=== PATIENT | male | born 1965 | race Caucasian/White ===

== ENCOUNTER → 2016-12-25 | Outpatient (CLI) | payer OTHER ==
[~2016-12-25] MED LIST: ASPEC81 PO; ATV5 PO; BYTI10 SQ; CARI350T28 PO; FLUO40CA8 PO; GABA800T PO; GLC500 PO; HMLI SC; LISI1TAB3 PO; NIAC500T11 PO; OXYC7.5T37 PO; RANI300T2 PO; SYN50 PO
[2016-12-25 17:55] LABS: ALT/SGPT 24 U/L (12-78); BLOOD UREA NITROGEN 17 mg/dl (7-18); BUN/CREATININE RATIO 15.4 (10-20); CALCIUM 9.1 mg/dl (8.5-10.1); CARBON DIOXIDE 26 mmol/L (21-32); CHLORIDE 101 mmol/L (98-107); GLUCOSE 204 mg/dl (70-99); POTASSIUM 3.9 mmol/L (3.5-5.1); SODIUM 138 mmol/L (136-145)
[2016-12-26 06:24] LABS: ESTIMATED AVERAGE GLUCOSE 269 mg/dl; HA1C FLAG Normal (Normal)
== END | disposition home or self-care (01) ==
LOC: C.LABMFLN 11:07
PROVIDERS: ATTEND Family Medicine
DX: N52.9 Male erectile dysfunction, unspecified (principal); N64.4 Mastodynia; I10 Essential (primary) hypertension; E78.00 Pure hypercholesterolemia, unspecified; E11.65 Type 2 diabetes mellitus with hyperglycemia; E03.9 Hypothyroidism, unspecified; Z12.5 Encounter for screening for malignant neoplasm of prostate

== ENCOUNTER → 2017-05-15 | Outpatient (CLI) | payer OTHER ==
[2017-05-15 14:33] LABS: RATIO 23.3 mcg/mg (0-30.0)
[2017-05-15 14:36] LABS: ESTIMATED AVERAGE GLUCOSE 260 mg/dl; HA1C FLAG Normal (Normal)
[2017-05-15 14:43] LABS: ALT/SGPT 36 U/L (12-78); BLOOD UREA NITROGEN 12 mg/dl (7-18); BUN/CREATININE RATIO 14.1 (10-20); CALCIUM 9.4 mg/dl (8.5-10.1); CARBON DIOXIDE 26 mmol/L (21-32); CHLORIDE 107 mmol/L (98-107); CHOLESTEROL 171 mg/dl (0-200); CREATININE 0.85 mg/dl (0.60-1.40); GLUCOSE 81 mg/dl (70-99); POTASSIUM 3.9 mmol/L (3.5-5.1); SODIUM 140 mmol/L (136-145); TRIGLYCERIDES 271 mg/dl (0-150); VERY LOW DENSITY LIPOPROT CALC 54 mg/dl
[2017-05-15 14:53] LABS: CHOLESTEROL/HDL RATIO 4.9; HDL CHOLESTEROL 35 mg/dl; LDL CHOLESTEROL CALCULATED 82 mg/dl
== END | disposition home or self-care (01) ==
LOC: C.LABMFLN 11:11
PROVIDERS: ATTEND Family Medicine
DX: E03.9 Hypothyroidism, unspecified (principal); E11.65 Type 2 diabetes mellitus with hyperglycemia; I10 Essential (primary) hypertension; E29.1 Testicular hypofunction

== ENCOUNTER → 2017-06-03 | Outpatient (CLI) | payer OTHER ==
[2017-06-03 13:18] LABS: URINE APPEARANCE CLEAR (CLEAR); URINE BILIRUBIN NEG (NEG); URINE COLOR DK YELLOW; URINE NITRITE NEG (NEG); URINE PH 6.5 (4.5-7.5); URINE SPECIFIC GRAVITY 1.028 (1.000-1.030); UROBILINOGEN NEG (NEG)
[2017-06-03 13:33] LABS: MANUAL MICROSCOPIC REQUIRED? NO; REVIEW REQ? NO
== END | disposition home or self-care (01) ==
LOC: C.LABMFLN 10:35
PROVIDERS: ATTEND Family Medicine
DX: M25.551 Pain in right hip (principal)

== ENCOUNTER → 2017-06-22 | Outpatient (CLI) | payer OTHER ==
[2017-06-22 13:31] LABS: ESTIMATED AVERAGE GLUCOSE 260 mg/dl; HA1C FLAG Normal (Normal)
[2017-06-22 13:33] LABS: BLOOD UREA NITROGEN 22 mg/dl (7-18); BUN/CREATININE RATIO 19.9 (10-20); CALCIUM 10.3 mg/dl (8.5-10.1); CARBON DIOXIDE 30 mmol/L (21-32); CHLORIDE 99 mmol/L (98-107); GLUCOSE 65 mg/dl (70-99); POTASSIUM 3.5 mmol/L (3.5-5.1); SODIUM 136 mmol/L (136-145)
== END | disposition home or self-care (01) ==
LOC: C.LABMFLN 09:47
PROVIDERS: ATTEND Family Medicine
DX: E03.9 Hypothyroidism, unspecified (principal); E11.65 Type 2 diabetes mellitus with hyperglycemia; R61 Generalized hyperhidrosis

== ENCOUNTER → 2017-10-02 | Outpatient (CLI) | payer OTHER ==
[2017-10-02 13:11] LABS: HEMATOCRIT 45.1 % (42-52); MEAN CELL VOLUME 88.3 fL (80-100); MEAN CORPUSCULAR HGB CONC 32.8 g/dl (32-36); MEAN PLATELET VOLUME 9.9 fL (7.4-10.4); PLATELET COUNT 322 K/uL (130-400); RED BLOOD COUNT 5.11 M/uL (4.7-6.1); WHITE BLOOD COUNT 9.86 K/uL (4.8-10.8)
== END | disposition home or self-care (01) ==
LOC: C.LABMFLN 08:58
PROVIDERS: ATTEND Family Medicine
DX: R07.2 Precordial pain (principal); R06.09 Other forms of dyspnea

== ENCOUNTER → 2017-10-06 | Outpatient (CLI) | payer OTHER ==
--- NOTE | 2017-10-06 10:44 | Exercise Stress Test Report ---
Exercise Stress Test Report Exercise Stress Test Report Date of Service: October 06, 2017 Exercise Stress Test Report Procedure performed: Exercise stress testing Indication chest pain Procedure in detail: Patient exercised for a total of 4 minutes and 3 seconds using a standard Don protocol. He achieved 76% of the maximum predicted heart rate and 5.8 Mets of activity. There were no symptoms reported during the test Baseline blood pressure was 131/58 in route to 199/60 Baseline EKG was normal sinus rhythm There were no significant EKG changes during exercise or recovery The test was discontinued due to back pain Impression: Sub maximal exercise stress test without evidence of inducible ischemia Hypertensive response to exercise
== END | disposition home or self-care (01) ==
LOC: C.CPL 08:26
PROVIDERS: ATTEND Family Medicine
DX: R07.2 Precordial pain (principal)

== ENCOUNTER → 2017-11-18 | Outpatient (CLI) | payer OTHER ==
[~2017-11-18] MED LIST changes: +LISI-863 PO; -LISI1TAB3 PO
[2017-11-18 13:09] LABS: HEMATOCRIT 42.8 % (42-52); HEMOGLOBIN 14.8 g/dL (14.0-18.0)
== END | disposition home or self-care (01) ==
LOC: C.LABMFLN 10:01
PROVIDERS: ATTEND Family Medicine
DX: K27.9 Peptic ulcer, site unspecified, unspecified as acute or chronic, without hemorrhage or perforation (principal)

== ENCOUNTER → 2018-07-02 | Outpatient (CLI) | payer OTHER ==
[2018-07-02 13:18] LABS: HEMOGLOBIN A1C 13.4 % (4.5-5.6)
[2018-07-02 13:47] LABS: ALBUMIN 3.5 gm/dl (3.4-5.0); ALKALINE PHOSPHATASE 151 U/L (45-117); ALT/SGPT 29 U/L (12-78); AST/SGOT 11 U/L (15-37); BLOOD UREA NITROGEN 20 mg/dl (7-18); CALCIUM 8.7 mg/dl (8.5-10.1); CARBON DIOXIDE 25 mmol/L (21-32); CHOLESTEROL 179 mg/dl (0-200); CREATININE 0.97 mg/dl (0.60-1.40); GLUCOSE 197 mg/dl (70-99); POTASSIUM 4.1 mmol/L (3.5-5.1); SODIUM 133 mmol/L (136-145); TOTAL PROTEIN 7.4 gm/dl (6.4-8.2)
== END | disposition home or self-care (01) ==
LOC: C.LAB 10:24
PROVIDERS: ATTEND Family Medicine
DX: E03.9 Hypothyroidism, unspecified (principal); E11.9 Type 2 diabetes mellitus without complications

== ENCOUNTER 2019-12-02 08:55 | Inpatient (IN) ==
[2019-12-02] MEDS ORDERED: ONDANSETRON 4 MG OD TAB PO PRN (15:30)
[2019-12-02] MEDS ORDERED: METOCLOPRAMIDE HCL INJ 5 MG/ML 2 ML VIAL IV PRN (15:30)
[2019-12-02] MEDS ORDERED: LORazepam 1 MG/2 ML VIAL IV PRN (15:30)
[2019-12-02] MEDS ORDERED: HYDROmorphone INJ 0.5 MG/0.5 ML SYR IV PRN (15:30)
[2019-12-02] MEDS ORDERED: PROMETHAZINE HCL 12.5 MG in SODIUM CHLORIDE 0.9% 50 ML IV PRN (15:30)
[2019-12-02] MEDS ORDERED: ONDANSETRON INJ 2 MG/ML 2 ML VIAL IV PRN (15:30)
--- NOTE | 2019-12-02 15:30 | History & Physical Report ---
Date of Service December 02, 2019 Assessment & Plan (1) Myelopathy concurrent with and due to spinal stenosis of thoracic region: At this time I admitted the patient for pain control and medical evaluation. I would recommend that he undergo urgent thoracolumbar decompression extending from T11-L4. We would have to remove the hardware at L4-5 L5-S1 to [employer] to the new fusion. This is been outlined in detail the patient and his they understand agree with this plan. At this point we will control his pain have him undergo medical evaluation plan for surgery on an urgent basis hopefully as soon as Thursday if cleared. Present on Admission?: Yes History of Present Illness Chief Complaint: Patient has had a steady decline in ambulation over the past several weeks and now is unable to ambulate secondary to severe weakness to left lower extremity. He also notes pain radiating to the right lower extremity with weightbearing. He describes significant numbness involving the left lower extremity in combination with his weakness. Again the symptoms began a few weeks ago but have been markedly progressive in nature. He was seen in my office yesterday underwent review of his thoracic and lumbar imaging demonstrating severe multilevel spinal stenosis most impressive at T11-T12 with traumatic cord compression and displacement. The patient subsequently pr ogressed presents with myelo radicular pattern of weakness and inability to ambulate. Patient denies any loss of bowel bladder control or any perineal numbness. Primary Care Provider: Jade Tong DO Allergies Allergy/AdvReac Type Severity Reaction Status Date / Time codeine Allergy Intermediate CONFUSION Verified 12/28/09 04:16 empagliflozin Allergy Unknown Headache Verified 12/02/19 13:54 [From Jardiance] meperidine [From Demerol] AdvReac Intermediate Nausea Verified 06/24/19 13:21 Home Medications Home Medications Medication Instructions Recorded Confirmed Type hydrocodone 7.5 mg-acetaminophen 1 tab PO Q8H #90 tab 06/24/19 Rx 325 mg tablet B-complex with vitamin C 1 tab PO DAILY #90 tab 07/05/19 12/02/19 Rx bupropion HCl 150 mg 24 hr tablet, 150 mg PO QPM #90 tab 07/05/19 12/02/19 Rx extended release chlorthalidone 25 mg tablet 25 mg PO DAILY #90 tab 07/05/19 12/02/19 Rx fenofibrate micronized 134 mg 134 mg PO DAILY #90 cap 07/05/19 07/05/19 Rx capsule lactulose 10 gram/15 mL oral 60 ml PO BID #473 ml 07/05/19 07/05/19 Rx solution metformin 1,000 mg tablet See Rx Instructions PO DAILY #225 07/05/19 12/02/19 Rx tab naloxegol 25 mg tablet 25 mg PO QAM #90 tab 07/05/19 07/05/19 Rx omega-3 acid ethyl esters 1 gram 1 cap PO BID #180 cap 07/05/19 07/05/19 Rx capsule pantoprazole 40 mg tablet,delayed 40 mg PO DAILY #90 tab 07/05/19 12/02/19 Rx release sucralfate 100 mg/mL oral 10 ml PO BID #420 ml 07/05/19 07/05/19 Rx suspension cyclobenzaprine 10 mg tablet 10 mg PO BID PRN tab 07/09/19 07/09/19 History oxycodone 10 mg tablet 10 mg PO Q4H PRN #30 tab 07/09/19 07/09/19 History cyclobenzaprine 10 mg tablet See Rx Instructions .ROUTE 08/05/19 Rx .COMPLEX #60 tablet insulin aspart U-100 100 unit/mL See Rx Instructions .ROUTE 08/05/19 Rx (3 mL) subcutaneous pen .COMPLEX #30 milliliter aspirin 162 mg PO DAILY 12/02/19 12/02/19 History atorvastatin 40 mg PO DAILY 12/02/19 12/02/19 History baclofen 10 mg PO BID 12/02/19 12/02/19 History duloxetine 30 mg PO DAILY 12/02/19 12/02/19 History insulin degludec 80 units SUBCUT BID 12/02/19 12/02/19 History levothyroxine 137 mcg PO DAILY 12/02/19 12/02/19 History lisinopril 2.5 mg PO DAILY 12/02/19 12/02/19 History meloxicam 15 mg PO DAILY 12/02/19 12/02/19 History metoprolol succinate 100 mg PO DAILY 12/02/19 12/02/19 History Past Med/Surg History Medical History (Updated 12/02/19 @ 15:29 by Chris Silva DO) Adenomatous polyp of colon (Chronic) Benign essential hypertension (Chronic) Depression (Chronic) Diabetes mellitus type 2, uncontrolled (Chronic) Hypercholesterolemia (Chronic) Hypothyroidism (Chronic) Lumbosacral radiculopathy at L3 (Chronic) Morbid obesity (Chronic) Obstructive sleep apnea (Chronic) Opiate dependence (Chronic) Paroxysmal atrial fibrillation (Chronic) Social History Preferred Language: Beninese Communication Ability: Effective Financial Reporting Consultant Required: No Beliefs That Will Affect Care: None Current Living Situation: Spouse Other Information That Helps Us Care for You: No Feels Safe at Home: Yes Safety Concerns: Feels Safe At This Time Smoking Status: Current every day smoker Tobacco Type: cigarettes ; Cigarettes Per Day: 45 ; Do You Dip or Chew Tobacco: Yes (occasionally) ; Hx Alcohol Use: Yes Alcohol type: beer, wine and hard liquor Hx Substance Use: No Physical Exam Physical Exam: On exam he has marked deficits to left plantar flexion dorsiflexion extensor pollicis longus as well as quadriceps and hip flexors. On the right he is a 4+/5 plantar flexion dorsiflexion quadriceps. Sensory is markedly diminished in the left lower extremity compared to the right. He is unable to ambulate secondary to leg weakness. Results & Data Vital Signs (Past 12 Hours) Vital Signs Temp Pulse Resp BP Pulse Ox 12/02/19 15:04 37.3 C 67 16 144/85 H 97 12/02/19 13:14 36.9 C 67 16 154/85 H 98
--- NOTE | 2019-12-02 16:45 | Ultrasound Report ---
US venous doppler LE BI CLINICAL HISTORY: Leg weakness and pain COMPARISON STUDY: No previous studies for comparison. FINDINGS: Real-time and color flow Doppler imaging were performed. Flow was seen within the femoral, popliteal and calf veins with no intraluminal thrombus demonstrated. The saphenous vein is patent. IMPRESSION: No evidence of lower extremity DVT. ACT 112: Negative or not required by law. Electronically signed by: Hipolito Olivares M.D. 12/02/2019 4:43 PM
--- NOTE | 2019-12-02 16:48 | XRay Report ---
XR chest 2V PA/lateral CLINICAL HISTORY: Preoperative chest COMPARISON STUDY: No previous studies for comparison. FINDINGS: The heart is at the upper limits of normal in size. There is no failure. There is no focal pulmonary consolidation. There are no pleural effusions.[ IMPRESSION: No active disease in the chest. ACT 112: Negative or not required by law. Electronically signed by: Hipolito Olivares M.D. 12/02/2019 4:47 PM
[2019-12-02] MEDS: OXYCODONE HCL IR 5 MG TAB (IMMEDIATE RELEASE) PO PRN ×2 (16:52→21:16)
--- NOTE | 2019-12-02 16:53 | Consultation ---
Date of Consultation December 02, 2019 Assessment & Plan (1) Lumbar radiculopathy: Pt with h/o lumbar surgery in 2008. Reports for past 8 months with progressive back pain with worsening over the past month with weakness and numbness of right leg. Venous Doppler BLE: No evidence of lower extremity DVT. CXR:No active disease in the chest. H/H: 13.6/41.3 CMP pending -Ortho spine-Dr. Silva on board; plan for possible procedure on 12/05/19 -pain management per ortho -Obtain EKG in am to further evaluate for complete pre-op evaluation (2) Diabetes mellitus type 2, uncontrolled: A1c: 13.8 on 10/07/2019 Following with outpatient [facility]TM glycemic pharmacy and insulin adjustments, Ozempic has not been started yet. -Hold metformin, Ozempic -Hold home insulin -Basal bolus insulin -Monitor BSG's, diabetic diet -Obtain updated A1c (3) HTN (hypertension): -On chlorthalidone, lisinopril, metoprolol (4) Dyslipidemia: -Continue atorvastatin (5) Hypothyroidism: TSH: 4.3 on 10/07/2019 -Continue levothyroxine (6) Depression: -Continue bupropion, duloxetine (7) GERD (gastroesophageal reflux disease): -Continue PPI (8) Morbid obesity: BMI: 41.8 Lifestyle modifications recommended (9) Tobacco use: -Pt reports wishing to quit smoking -Pt denies nicotine patch at this time DVT Prophylaxis -SCDs Disposition per primary service Follows with Dr Tong for routine care Pt was seen and care coordinated with Dr Sarabia. See addendum Pt will be followed by Dr Box starting 12/03/18. Thank you for this consultation. We will follow the patient with you during their hospital stay. You can reach a member of the [facility] Hospitalist Team 15/06 via pager @ [phone]. Supervising Physician Co-Signing Physician Notes HISTORY: Record reviewed. Patient interviewed and examined. Care coordinated with Charisse Moffett PA-C. Please refer to her documentation for complete history. Briefly, 54 YO male with history of hypertension, DM, and other problems. Progressive low back pain with severe right sciatica and LLE weakness. MRI demonstrated multilevel disc disease / spinal stenosis. Admitted to Ortho Spine service EXAM: General- no distress Lungs- clear to auscultation; no respiratory distress Cardiovascular- RRR; no murmur; no gallop; no JVD; 1+ pretibial edema Abdomen- + bowel sounds, soft, nontender Extremities- no cyanosis; no calf tenderness Neuro- alert, oriented; weakness LLE Skin- warm & dry; healing superficial lesion left lateral foot without erythema or drainage DATA: Hgb 13.6, WBC 10,610, plts 274,000. Normal lytes, BUN 14, creatinine 0.93, random glucose 194. Other lab studies as noted. Chest x-ray negative. Venous duplex bilateral lower extremities negative for DVT. ASSESSMENT AND PLAN: Lumbar spinal stenosis with myelopathy. Management per Ortho Spine. Hypertension. Continue chlorthalidone, lisinopril, metoprolol. DM type II. Hold metformin during hospital stay. Check Hgb A1C. Lantus / NovoLog per protocol. Aspirin therapy. Apparently for prophylaxis. Hold. Please refer to CLAIRE Moffett's documentation for discussion of other issues. Thank you for this consultation. We will follow the patient with you during their hospital stay. My cell # is [phone]. You can reach a member of the [facility] Medicine Team 15/06 via pager @ [phone]. History of Present Illness Requesting Physician: Dr Silva Reason for Consultation: Pre-op evaluation Attending Physician: Chris Silva, History of Present Illness Pt is 54 y/o M with PMH HTN, dyslipidemia, DM II, hypothyroidism, depression, morbid obesity seen in medical consultation for pre- op evaluation. Pt with h/o lumbar surgery in 2008. Reports for past 8 months with progressive back pain with worsening over the past month with numbness of right leg. Also complains of left leg weakness. Denies loss of control of bowel or bladder. Reports numbness of bilateral feet. Patient denies any history of exertional shortness of breath, chest pain. Reported possible history of episode of a-fib in 11/2017 at [facility]. Subsequently followed with Dr. Herrera - Cardiology and had Zio patch 12/2017: No A. fib, 5 SVT runs longest 10.6 seconds. Patient denies any history of palpitations. Has history of congestive heart failure, TIA, stroke, CKD, CAD. History echo 11/01/2019: EF: 64%, normal diastolic function, trace mitral regurgitation. Pt recently started follow up with [facility] for uncontrolled DM II. Had adjustments with his insulin and was to start Ozempic, but has not started yet. Denies fever/chills, diaphoresis, N/V/D/C, ARREGUIN, dizziness, syncope, vision changes, neck pain, orthopnea, cough, sore throat, choking, otalgia, rhinorrhea, abdominal pain, extremity edema, rashes, urinary symptoms. 11/15/2019 MRI T-spine without contrast: Impression: Disc herniation is seen at T11-12 with marked displacement of the cord to the right. The large disc is occupying approximately 2/3 of the canal 10/31/2019 MRI L-spine without contrast Impression: 1. Multilevel, multifactorial degenerative changes of the lumbar spine with varying degrees of spinal canal and neural foraminal stenosis. 2. Severe spinal canal stenosis with mass-effect of the distal spinal cord at the level of T11-T12. 3. Postsurgical changes of posterior spinal fusion spanning L4-S1. 4. Incompletely characterized left adrenal nodule, similar in size to MRI abdomen dated 04/05/2019 Allergies Allergy/AdvReac Type Severity Reaction Status Date / Time codeine Allergy Intermediate CONFUSION Verified 12/28/09 04:16 empagliflozin Allergy Unknown Headache Verified 12/02/19 13:54 [From Jardiance] meperidine [From Demerol] AdvReac Intermediate Nausea Verified 06/24/19 13:21 Home Medications Home Medications Medication Instructions Recorded Confirmed Type B-complex with vitamin C 1 tab PO DAILY #90 tab 07/05/19 12/02/19 Rx bupropion HCl 150 mg 24 hr tablet, 150 mg PO QPM #90 tab 07/05/19 12/02/19 Rx extended release chlorthalidone 25 mg tablet 25 mg PO DAILY #90 tab 07/05/19 12/02/19 Rx metformin 1,000 mg tablet See Rx Instructions PO DAILY #225 07/05/19 12/02/19 Rx tab pantoprazole 40 mg tablet,delayed 40 mg PO DAILY #90 tab 07/05/19 12/02/19 Rx release aspirin 162 mg PO DAILY 12/02/19 12/02/19 History atorvastatin 40 mg PO HS 12/02/19 12/02/19 History baclofen 10 mg PO BID 12/02/19 12/02/19 History duloxetine 30 mg PO DAILY 12/02/19 12/02/19 History insulin aspart U-100 [Novolog 40 unit SUBCUT TIDM 12/02/19 12/02/19 History Flexpen U-100 Insulin] insulin degludec 80 units SUBCUT BID 12/02/19 12/02/19 History levothyroxine 137 mcg PO DAILY 12/02/19 12/02/19 History lisinopril 2.5 mg PO DAILY 12/02/19 12/02/19 History meloxicam 15 mg PO DAILY 12/02/19 12/02/19 History metoprolol tartrate 100 mg PO BID 12/02/19 12/02/19 History semaglutide [Ozempic] 0.25 mg SUBCUT WK 12/02/19 12/02/19 History Patient History Medical History Adenomatous polyp of colon (Chronic) Benign essential hypertension (Chronic) Depression (Chronic) Diabetes mellitus type 2, uncontrolled (Chronic) Dyslipidemia GERD (gastroesophageal reflux disease) HTN (hypertension) Hypercholesterolemia (Chronic) Hypothyroidism (Chronic) Lumbosacral radiculopathy at L3 (Chronic) Morbid obesity (Chronic) Obstructive sleep apnea (Chronic) Opiate dependence (Chronic) Paroxysmal atrial fibrillation (Chronic) Tobacco use Surgical History (Updated 12/02/19 @ 16:24 by Cahrisse Moffett PA-C) History of colonoscopy 03/2018 - Dr Villela. 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 Beliefs That Will Affect Care: None Current Living Situation: Spouse Other Information That Helps Us Care for You: No Feels Safe at Home: Yes Safety Concerns: Feels Safe At This Time Smoking Status: Current every day smoker Tobacco Type: cigarettes ; Cigarettes Per Day: 1.5ppd ; Do You Dip or Chew Tobacco: Yes (occasionally) ; Hx Alcohol Use: Yes Alcohol type: beer, wine and hard liquor Alcohol Intake Frequency: Holidays/Special Occasions Hx Substance Use: No Review of Systems Review of Systems: All systems reviewed & are unremarkable except as noted in HPI & below Physical Exam Physical Exam: General: no acute distress, obese Head: normocephalic, atraumatic Eyes: conjunctiva non-injected, anicteric ENT: normal inspection external ears, nose, mucous membranes moist Neck: supple, trachea midline Lungs: clear, no respiratory distress, no wheezing/rhonchi/rales CV: RRR, no murmur, no pretibial edema Abd: normal BS, soft, non-tender Back: +healed surgical scar, no skin discolorations, Ext: no cyanosis, no calf tenderness; left leg weakness, unable to left straight leg raise, unable to flex at hip and extend at knee; right leg strength 4/5, Bilateral pedal and posterior tibial pulses intact Neuro: A&O x 3, no focal deficits noted, normal affect Skin: warm, dry; left lateral foot with eschar without surrounding erythema or edema, +excoriation back, right lower leg and foot without surrounding erythema Results & Data Vital Signs (Past 12 Hours) Vital Signs Temp Pulse Resp BP Pulse Ox 12/02/19 15:04 37.3 C 67 16 144/85 H 97 12/02/19 13:14 36.9 C 67 16 154/85 H 98 Diagnostic Findings Venous Doppler BLE: IMPRESSION: No evidence of lower extremity DVT. CXR: IMPRESSION: No active disease in the chest.
[2019-12-02] MEDS ORDERED: GLUCOSE 10 TABS/TUBE PO PRN (16:54)
[2019-12-02] MEDS ORDERED: DEXTROSE 50% 50 ML SYRINGE IV PRN (16:54)
[2019-12-02] MEDS ORDERED: GLUCAGON FOR INJ 1 MG VIAL SQ PRN (16:54)
[2019-12-02] MEDS ORDERED: GLUCOSE 40% GEL 15 GM TUBE PO PRN (16:54)
[2019-12-02] MEDS ORDERED: CARBOHYDRATES FOR HYPOGLYCEMIA PO PRN (16:54)
[2019-12-02 17:34] LABS: Basophils # (auto) 0.05 K/uL (0-0.2); Basophils % (auto) 0.5 %; Eosinophils # (auto) 0.21 K/uL (0-0.5); Hematocrit (blood only) 41.3 % (42-52); Hemoglobin 13.6 g/dL (14.0-18.0); Immature Granulocytes # (auto) 0.06 K/uL (0.00-0.02); Immature Granulocytes % (auto) 0.6 %; Lymphocytes # (auto) 2.79 K/uL (1.2-3.4); Lymphocytes % (auto) 26.3 %; Mean Corpuscular Hemoglobin 29.2 pg (25-34); Mean Corpuscular Hgb Conc 32.9 g/dL (32-36); Mean Corpuscular Volume 88.8 fL (80-100); Mean Platelet Volume 9.3 fL (7.4-10.4); Monocytes # (auto) 0.65 K/uL (0.11-0.59); Monocytes % (auto) 6.1 %; Neutrophils # (auto) 6.85 K/uL (1.4-6.5); Neutrophils % (auto) 64.5 %; Platelet Count 274 K/uL (130-400); RDW Coefficient of Variation 15.2 % (11.5-14.5); RDW Standard Deviation 48.7 fL (36.4-46.3); Red Blood Count 4.65 M/uL (4.7-6.1); White Blood Count 10.61 K/uL (4.8-10.8)
[2019-12-02] MEDS: LACTATED RINGER'S 1,000 ML IV SCH (17:41)
[2019-12-02 17:55] LABS: Albumin Globulin Ratio 0.9 (0.9-2); Albumin Level 3.1 gm/dl (3.4-5.0); BUN Creatinine Ratio 14.8 (10-20); Bilirubin,Total 0.3 mg/dl (0.2-1); Calcium 8.7 mg/dl (8.5-10.1); Creatinine Clr Calc Pharmacy 127.9 ml/min; Est GFR (African American) 107.5; Est GFR (Non-African American) 92.7; Globulin 3.5 gm/dl (2.5-4.0); Potassium 4.3 mmol/L (3.5-5.1); Total Protein 6.6 gm/dl (6.4-8.2)
[2019-12-02] MEDS: INSULIN ASPART 100 UNITS/ML 3 ML PEN SC SCH ×2 (18:15→21:18)
[2019-12-02] MEDS: ATORVASTATIN 40 MG TAB PO SCH (21:10)
[2019-12-02] MEDS: METOPROLOL TARTRATE 100 MG TAB PO SCH (21:10)
[2019-12-02] MEDS: BuPROPion XL 150 MG TABCR PO SCH (21:10)
[2019-12-02] MEDS: DOCUSATE SODIUM 100 MG CAP PO SCH (21:10)
[2019-12-02] MEDS: INSULIN GLARGINE SOLOSTAR 100 UNITS/ML 3 ML PEN SC SCH (21:17)
[2019-12-03] MEDS: HYDROmorphone INJ 1 MG/ML SYRINGE IV PRN ×6 (00:02→20:30)
[2019-12-03] MEDS: ACETAMINOPHEN 500 MG TAB PO PRN ×3 (00:03→23:09)
[2019-12-03] MEDS: OXYCODONE HCL IR 5 MG TAB (IMMEDIATE RELEASE) PO PRN ×6 (01:49→23:10)
[2019-12-03] MEDS: LACTATED RINGER'S 1,000 ML IV SCH (04:19)
[2019-12-03] MEDS: LEVOTHYROXINE SODIUM 137 MCG TABLET PO SCH (05:51)
[2019-12-03 06:26] LABS: Estimated Average Glucose 272 mg/dl; Hemoglobin A1C 11.1 % (4.5-5.6)
[2019-12-03] MEDS: DULOXETINE HCL 30 MG CAP PO SCH (09:09)
[2019-12-03] MEDS: DOCUSATE SODIUM 100 MG CAP PO SCH ×2 (09:09→20:34)
[2019-12-03] MEDS: PANTOprazole 40 MG TAB PO SCH (09:09)
[2019-12-03] MEDS: METOPROLOL TARTRATE 100 MG TAB PO SCH ×2 (09:09→20:34)
[2019-12-03] MEDS: CHLORTHALIDONE 25 MG TAB PO SCH (09:09)
[2019-12-03] MEDS: INSULIN ASPART 100 UNITS/ML 3 ML PEN SC SCH ×4 (09:10→20:33)
[2019-12-03] MEDS: INSULIN GLARGINE SOLOSTAR 100 UNITS/ML 3 ML PEN SC SCH ×2 (09:11→20:33)
--- NOTE | 2019-12-03 09:54 | Orthopedic Progress Note ---
Date of Service December 03, 2019 Assessment & Plan (1) Myelopathy concurrent with and due to spinal stenosis of thoracic region: At this time we will wait preoperative clearance and plan for urgent thoracolumbar decompression and fusion. Patient stands and agrees. Present on Admission?: Yes Subjective Patient now complaining of bilateral leg pain. She continued weakness. He is able to ambulate about the room with his cane. Physical Exam Physical Exam: On exam he does demonstrate significant weakness to left lower extremity greater than the right. Results & Data Vital Signs (Past 12 Hours) Vital Signs Temp Pulse Resp BP Pulse Ox 12/03/19 07:44 36.7 C 62 19 149/89 H 96 12/02/19 23:10 36.9 C 67 20 159/87 H 96
--- NOTE | 2019-12-03 18:12 | Hospitalist Progress Note ---
Date of Service December 03, 2019 Assessment & Plan (1) Lumbar radiculopathy: Pt with h/o lumbar surgery in 2008. Reports for past 8 months with progressive back pain with worsening over the past month with weakness and numbness of right leg. Venous Doppler BLE: No evidence of lower extremity DVT. CXR:No active disease in the chest. -Ortho spine-Dr. Silva on board; plan for possible procedure on 12/05/19 PRE OP CLEARANCE /EVALUATION : pt has accepted risk to proceed for lumber decompression surgery on Thursday12/05/19 Lab /Chest Xray /EKG reviewed no further medical work up : images or studies needed - (2) Diabetes mellitus type 2, uncontrolled: A1c: 13.8 on 10/07/2019 Following with outpatient [facility]TM glycemic pharmacy and insulin adjustments, Ozempic has not been started yet. -Hold metformin, Ozempic -Basal bolus insulin and sliding scale -Monitor BSG's, diabetic diet - (3) HTN (hypertension): -On chlorthalidone, lisinopril, metoprolol BP stable (4) Dyslipidemia: -Continue atorvastatin (5) Hypothyroidism: TSH: 4.3 on 10/07/2019 -Continue levothyroxine (6) Depression: -Continue bupropion, duloxetine (7) GERD (gastroesophageal reflux disease): -Continue PPI (8) Morbid obesity: BMI: 41.8 Lifestyle modifications recommended (9) Tobacco use: -Pt reports wishing to quit smoking -Pt denies nicotine patch at this time DVT Prophylaxis -SCDs Disposition per primary service Follows with Dr Tong for routine care P Thank you for this consultation. We will follow the patient with you during their hospital stay. You can reach a member of the [facility] Hospitalist Team 15/06 via pager @ [phone]. Subjective complains of bilateral leg pain -radiation to knee , with weakness on left lower ext persistent back pain no fever or chills no urinary symptoms no complain of SOB , chest pain or cough Review of Systems Review of Systems: All systems reviewed & are unremarkable except as noted in HPI & below Physical Exam Constitutional: WD/WN, vitals as above Eyes: PERRL, conjunctivae normal, anicteric sclerae ENMT: external ear and nose normal, oropharynx normal Neck: trachea midline, no thyromegaly Respiratory: normal respiratory effort, lungs clear to auscultation Cardiovascular: RRR, no murmur, no edema Gastrointestinal (Abdomen): normal bowel sounds, soft, nontender, no hepatosplenomegaly Musculoskeletal: Extremities: + limited ROM of extremities due to back pain Skin: no rashes, warm and dry Neurologic: PERRL, EOMI, accommodation nl, no face palsy, no dysarthria Psychiatric: A+Ox3, euthymic affect Results & Data Vital Signs (Past 12 Hours) Vital Signs Temp Pulse Resp BP Pulse Ox 12/03/19 15:41 36.7 C 51 L 20 156/89 H 96 12/03/19 07:44 36.7 C 62 19 149/89 H 96
[2019-12-03] MEDS: BuPROPion XL 150 MG TABCR PO SCH (20:34)
[2019-12-03] MEDS: ATORVASTATIN 40 MG TAB PO SCH (20:34)
[2019-12-03] MEDS: LORazepam 1 MG TAB PO PRN (23:09)
[2019-12-04] MEDS: HYDROmorphone INJ 1 MG/ML SYRINGE IV PRN ×5 (03:43→23:54)
--- NOTE | 2019-12-04 05:50 | Electrocardiogram Report ---
Test Reason : Blood Pressure : / mmHG Vent. Rate : 059 BPM Atrial Rate : 059 BPM P-R Int : 164 ms QRS Dur : 082 ms QT Int : 436 ms P-R-T Axes : 036 072 076 degrees QTc Int : 431 ms Sinus bradycardia Otherwise normal ECG When compared with ECG of 06-JUN-2009 12:18, Vent. rate has decreased BY 32 BPM Confirmed by Gerald Hodge ([id number]) on 12/04/2019 5:50:18 AM Referred By: Chris Silva Confirmed By:Gerald Hodge
[2019-12-04] MEDS: OXYCODONE HCL IR 5 MG TAB (IMMEDIATE RELEASE) PO PRN ×3 (06:14→20:24)
[2019-12-04] MEDS: LEVOTHYROXINE SODIUM 137 MCG TABLET PO SCH (06:14)
[2019-12-04] MEDS: METOPROLOL TARTRATE 100 MG TAB PO SCH ×2 (09:05→20:30)
[2019-12-04] MEDS: CHLORTHALIDONE 25 MG TAB PO SCH (09:05)
[2019-12-04] MEDS: PANTOprazole 40 MG TAB PO SCH (09:05)
[2019-12-04] MEDS: INSULIN GLARGINE SOLOSTAR 100 UNITS/ML 3 ML PEN SC SCH ×2 (09:07→20:34)
[2019-12-04] MEDS: DOCUSATE SODIUM 100 MG CAP PO SCH ×2 (09:07→20:30)
[2019-12-04] MEDS: DULOXETINE HCL 30 MG CAP PO SCH (09:07)
[2019-12-04] MEDS: INSULIN ASPART 100 UNITS/ML 3 ML PEN SC SCH ×4 (09:09→20:32)
[2019-12-04] MEDS: ACETAMINOPHEN 500 MG TAB PO PRN ×2 (11:08→20:23)
--- NOTE | 2019-12-04 11:35 | Orthopedic Progress Note ---
Date of Service December 04, 2019 Assessment & Plan (1) Myelopathy concurrent with and due to spinal stenosis of thoracic region: This time he will be made n.p.o. after midnight with plan for lumbar decompression and fusion tomorrow. Present on Admission?: Yes Subjective Patient is complaining of now left leg pain as well as right leg pain. Still marked difficulty with ambulation. Physical Exam Physical Exam: Still significant weakness to left lower extremity. He is comfortable when in bed. Results & Data Vital Signs (Past 12 Hours) Vital Signs Temp Pulse Pulse Resp BP BP Pulse Ox 12/04/19 07:30 36.9 C 61 18 122/74 97 12/03/19 23:56 36.7 C 78 18 143/76 H 96
--- NOTE | 2019-12-04 14:57 | Hospitalist Progress Note ---
Date of Service December 04, 2019 Assessment & Plan (1) Lumbar radiculopathy: Pt with h/o lumbar surgery in 2008. Reports for past 8 months with progressive back pain with worsening over the past month with weakness and numbness of right leg. Venous Doppler BLE: No evidence of lower extremity DVT. CXR:No active disease in the chest. -Ortho spine-Dr. Silva on board; plan for possible procedure on 12/05/19 PRE OP CLEARANCE /EVALUATION : pt has accepted risk to proceed for lumber decompression surgery on Thursday12/05/19 Lab /Chest Xray /EKG reviewed no further medical work up : images or studies needed Patient is ordered n.p.o. past midnight, for scheduled lumbar decompression surgery in a.m. - (2) Diabetes mellitus type 2, uncontrolled: A1c: 13.8 on 10/07/2019 Following with outpatient MTM glycemic pharmacy and insulin adjustments, Ozempic has not been started yet. -Hold metformin, Ozempic -Basal bolus insulin and sliding scale -Monitor BSG's, diabetic diet - (3) HTN (hypertension): -On chlorthalidone, lisinopril, metoprolol Continue all BP meds, patient should be given p.o. metoprolol with sips of water in a.m. prior to surgery BP stable (4) Dyslipidemia: -Continue atorvastatin (5) Hypothyroidism: TSH: 4.3 on 10/07/2019 -Continue levothyroxine (6) Depression: -Continue bupropion, duloxetine (7) GERD (gastroesophageal reflux disease): -Continue PPI (8) Morbid obesity: BMI: 41.8 Lifestyle modifications recommended (9) Tobacco use: -Pt reports wishing to quit smoking -Pt denies nicotine patch at this time DVT Prophylaxis -SCDs/avoid anticoagulation she is scheduled for spinal surgery in a.m. Disposition per primary service Follows with Dr Tong for routine care Thank you for this consultation. We will follow the patient with you during their hospital stay. You can reach a member of the [facility] Hospitalist Team 15/06 via pager @ [phone]. Subjective Still have intractable low back pain with radiation to both legs, causing difficulty in ambulation No complaint of shortness of breath, no chest pain, no cough no fever chills For spinal decompression surgery tomorrow Physical Exam Constitutional: WD/WN, vitals as above Eyes: PERRL, conjunctivae normal, anicteric sclerae ENMT: external ear and nose normal, oropharynx normal Neck: trachea midline, no thyromegaly Respiratory: normal respiratory effort, lungs clear to auscultation Cardiovascular: RRR, no murmur, no edema Gastrointestinal (Abdomen): normal bowel sounds, soft, nontender, no hepatosplenomegaly Musculoskeletal: Extremities: + limited ROM of extremities Skin: no rashes, warm and dry Neurologic: PERRL, EOMI, accommodation nl, no face palsy, no dysarthria Psychiatric: A+Ox3, euthymic affect Results & Data Vital Signs (Past 12 Hours) Vital Signs Temp Pulse Resp BP Pulse Ox 12/04/19 07:30 36.9 C 61 18 122/74 97
[2019-12-04] MEDS ORDERED: PHARMACY GLYCEMIC MGMT CONSULT PRN (18:21)
--- NOTE | 2019-12-04 19:11 | Pharmacy Report ---
PHA: Glycemic Control AP - Date of Service December 04, 2019 - Assessment & Plan Laboratory Tests 12/02/19 12/02/19 12/02/19 14:03 17:10 17:12 POC Glucose 146 H 188 H Hemoglobin A1c 11.1 H 12/02/19 12/03/19 12/03/19 20:23 08:13 11:53 POC Glucose 155 H 80 215 H Hemoglobin A1c 12/03/19 12/03/19 12/04/19 17:09 20:32 08:33 POC Glucose 102 H 126 H 143 H Hemoglobin A1c 12/04/19 12/04/19 12:07 16:58 POC Glucose 135 H 240 H Hemoglobin A1c Reported Home Diabetes Regimen: * Insulin Degludec 80 units BID * Novolog 40 units TIDm * Metformin * Ozempic--not started yet * KyI9d=25/1% 12/02-12/04/19 In-patient Regimen: * Basal insulin (pending): Lantus 40 units 12/02 PM, 12/03 PM, 12/04 AM * Correctional Insulin: Novolog Correction per scale ACHS Goal Range: Low 120 mg/dL - High 160 mg/dL Correction Factor: 15 mg/dL/unit * Prandial insulin: Per carb ratio of 1 unit per 6 grams CHO consumed After Glycemic Consult: Pt's family brought in [employer] coffee with sugar earlier this afternoon. Pt did not receive any insulin to cover these carbs. Dinner BSG elevated at 240mg/dL. Novolog 19 units received with dinner. I recommend continuing currently ordered insulin doses and will continue to monitor moving forward. * Basal insulin (pending): Lantus 20 (BSG <110) - 40 (BSG >110) units sq BID * Correctional Insulin: Novolog Correction per scale ACHS Goal Range: Low 100 mg/dL - High 140 mg/dL Correction Factor: 15 mg/dL/unit * Prandial insulin: Per carb ratio of 1 unit per 6 grams CHO consumed Pharmacy will continue to monitor patient daily and write orders per [facility] inpatient glycemic control protocol. Thanks. * Please note that the plan above was derived based on current level of insulin resistance and hospital stress. These recommendations are appropriate for inpatient admission only. Plan of care upon discharge will need to be reassessed to avoid potential outpatient hypo/hyperglycemia.
[2019-12-04] MEDS: BuPROPion XL 150 MG TABCR PO SCH (20:30)
[2019-12-04] MEDS: ATORVASTATIN 40 MG TAB PO SCH (20:30)
[2019-12-04] MEDS: LORazepam 1 MG TAB PO PRN (23:55)
[2019-12-05] MEDS: INSULIN ASPART 100 UNITS/ML 3 ML PEN SC SCH ×5 (00:41→21:55)
[2019-12-05] MEDS: OXYCODONE HCL IR 5 MG TAB (IMMEDIATE RELEASE) PO PRN ×2 (02:33→23:58)
[2019-12-05] MEDS: HYDROmorphone INJ 1 MG/ML SYRINGE IV PRN ×2 (04:31→07:47)
[2019-12-05] MEDS: LEVOTHYROXINE SODIUM 137 MCG TABLET PO SCH (06:06)
[2019-12-05] MEDS: METOPROLOL TARTRATE 100 MG TAB PO SCH ×2 (06:06→21:05)
--- NOTE | 2019-12-05 08:29 | Hospitalist Progress Note ---
Date of Service December 05, 2019 Assessment & Plan (1) Lumbar radiculopathy: Pt with h/o lumbar surgery in 2008. Reports for past 8 months with progressive back pain with worsening over the past month with weakness and numbness of right leg. Venous Doppler BLE: No evidence of lower extremity DVT. CXR:No active disease in the chest. -Ortho spine-Dr. Silva on board; scheduled for spinal surgery today () PRE OP CLEARANCE /EVALUATION : -pt has accepted risk to proceed for lumber decompression surgery on Thursday12/05/19 -lab /Chest Xray /EKG reviewed -no further medical work up : images or studies needed Patient is ordered n.p.o. past midnight, for scheduled lumbar decompression surgery in a.m. (2) Diabetes mellitus type 2, uncontrolled: A1c: 13.8 on 10/07/2019 Following with outpatient MTM glycemic pharmacy and insulin adjustments, Ozempic has not been started yet -Hold metformin, Ozempic -Basal bolus insulin and sliding scale -Monitor BSG's, diabetic diet -Glycemic consult in place (3) HTN (hypertension): -On chlorthalidone, lisinopril, metoprolol Continue all BP meds, patient should be given p.o. metoprolol with sips of water in a.m. prior to surgery BP stable (4) Dyslipidemia: -Continue atorvastatin (5) Hypothyroidism: TSH: 4.3 on 10/07/2019 -Continue levothyroxine (6) Depression: -Continue bupropion, duloxetine (7) GERD (gastroesophageal reflux disease): -Continue PPI (8) Morbid obesity: BMI: 41.8 Lifestyle modifications recommended (9) Tobacco use: -Pt reports wishing to quit smoking -Pt denies nicotine patch at this time DVT Prophylaxis -SCDs/avoid anticoagulation she is scheduled for spinal surgery in a.m. Disposition per primary service Follows with Dr Tong for routine care Patient seen in collaboration with Dr. Box. Please see addendum. Thank you for this consultation. We will follow the patient with you during their hospital stay. You can reach a member of the [facility] Hospitalist Team 15/06 via pager @ [phone]. Supervising Physician Co-Signing Physician Notes Attending addendum: Patient seen and examined, care coordinated with Ashlyn Oneill PA-C Patient for spinal decompression surgery today, denies of any shortness of breath, no chest pain no cough no fever or chills Vitals remained stable Stable to proceed for scheduled spinal surgery today Please refer to further documentation by Ashlyn Oneill PA-C for discussion of other chronic issues Corina Box MD Subjective Seen and examined in [id number]. Still have intractable low back pain with radiation to both legs, causing difficulty in ambulation and pain. Denies fever, chills, lightheadedness, chest pain, SOB, nausea, vomiting, diarrhea, dysuria, diarrhea or constipation. Currently NPO with for spinal decompression surgery scheduled for later this morning. Review of Systems Review of Systems: At least ten systems reviewed and negative except as noted in the HPI. Physical Exam Physical Exam: General Appearance: WD/WN, vitals as above, NAD, sitting up in bed, conversing easily Head: normocephalic, atraumatic Eyes: normal inspection, PERRL, conjunctivae normal, anicteric sclerae ENT: external ear and nose normal, oropharynx normal Neck: trachea midline, no thyromegaly normal visual inspection Respiratory: lungs clear to auscultation, no wheeze, rales, rhonchi. Normal insp/exp effort, no accessory muscle use Cardiovascular: regular rate, rhythm, no murmur, normal peripheral pulses Chest: normal inspection of chest Abdomen/GI: normal bowel sounds, soft, nontender, no hepatosplenomegaly Extremities/Musculoskeletal: Lumbosacral TTP. No cyanosis or clubbing, chronic LLE weakness Neurologic: CN's II-XI intact bilaterally and moves all extremities Psychiatric: A+Ox3, euthymic affect Skin: no rashes, normal color, warm/dry Results & Data Vital Signs (Past 12 Hours) Vital Signs Temp Pulse Pulse Resp BP BP Pulse Ox 12/05/19 07:04 36.9 C 57 L 16 143/87 H 98 12/05/19 06:02 62 149/80 H 12/04/19 23:56 37.2 C 65 20 152/91 H 97 12/04/19 20:28 66 140/87
--- NOTE | 2019-12-05 09:18 | Anesthesiology Consultation ---
Date of Service December 05, 2019 Assessment & Plan (1) Encounter for pre-operative examination: Chart Review Chart Review: Acceptable Risk for Surgery and Patient NOT seen in Pre Admission Testing Consults Requested none History Surgery Operation Date: 12/05/19 11:45 Proposed Procedures p T10-L4 Lumbar Decompression and Fusion, L4-S1 Hardware Removal, Spinal Cord Monitoring - Chris Silva DO Height/Weight Height: 5 ft 11 in Weight: 136 kg Allergies Allergy/AdvReac Type Severity Reaction Status Date / Time codeine Allergy Intermediate CONFUSION Verified 12/28/09 04:16 empagliflozin Allergy Unknown Headache Verified 12/02/19 13:54 [From Jardiance] meperidine [From Demerol] AdvReac Intermediate Nausea Verified 06/24/19 13:21 Medications Home Medications Medication Instructions Recorded Confirmed Last Taken B-complex with vitamin C 1 tab PO DAILY #90 tab 07/05/19 12/02/19 12/02/19 07:00 1 tab bupropion HCl 150 mg 24 hr tablet, 150 mg PO QPM #90 tab 07/05/19 12/02/19 12/01/19 21:00 extended release 150 mg chlorthalidone 25 mg tablet 25 mg PO DAILY #90 tab 07/05/19 12/02/19 12/02/19 07:00 25 mg metformin 1,000 mg tablet See Rx Instructions PO DAILY #225 07/05/19 12/02/19 12/02/19 07:00 tab 1500 mg pantoprazole 40 mg tablet,delayed 40 mg PO DAILY #90 tab 07/05/19 12/02/19 12/02/19 07:00 release 40 mg aspirin 162 mg PO DAILY 12/02/19 12/02/19 12/02/19 07:00 162 mg atorvastatin 40 mg PO HS 12/02/19 12/02/19 12/01/19 baclofen 10 mg PO BID 12/02/19 12/02/19 12/02/19 07:00 10 mg duloxetine 30 mg PO DAILY 12/02/19 12/02/19 12/02/19 07:00 30 mg insulin aspart U-100 [Novolog 40 unit SUBCUT TIDM 12/02/19 12/02/19 12/02/19 Flexpen U-100 Insulin] insulin degludec 80 units SUBCUT BID 12/02/19 12/02/19 12/01/19 23:00 80 units levothyroxine 137 mcg PO DAILY 12/02/19 12/02/19 12/02/19 lisinopril 2.5 mg PO DAILY 12/02/19 12/02/19 12/02/19 meloxicam 15 mg PO DAILY 12/02/19 12/02/19 12/02/19 07:00 15 mg metoprolol tartrate 100 mg PO BID 12/02/19 12/02/19 12/02/19 semaglutide [Ozempic] 0.25 mg SUBCUT WK 12/02/19 12/02/19 Unknown Active Medications Generic Name Dose Route Start Last Admin Trade Name Freq PRN Reason Stop Dose Admin Acetaminophen 1,000 mg 12/02/19 15:30 12/04/19 20:23 Tylenol PO 01/01/20 15:29 1,000 mg Q8H PRN Administration MILD Pain Rating 1,2,3 Atorvastatin Calcium 40 mg 12/02/19 21:00 12/04/19 20:30 Lipitor PO 01/01/20 20:59 40 mg HS BERNICE Administration Bupropion HCl 150 mg 12/02/19 21:00 12/04/19 20:30 Wellbutrin-Xl PO 01/01/20 20:59 150 mg QPM BERNICE Administration Chlorthalidone 25 mg 12/03/19 09:00 12/04/19 09:05 Hygroton PO 01/02/20 08:59 25 mg DAILY BERNICE Administration Docusate Sodium 100 mg 12/02/19 21:00 12/04/19 20:30 Colace PO 01/01/20 20:59 100 mg BID BERNICE Administration Duloxetine HCl 30 mg 12/03/19 09:00 12/04/19 09:07 Cymbalta PO 01/02/20 08:59 30 mg DAILY BERNICE Administration Hydromorphone HCl 1 mg 12/02/19 15:30 12/05/19 07:47 Dilaudid IV 12/16/19 15:29 1 mg Q3H PRN Administration severe pain (scale 7-10) Insulin Aspart 0 units 12/05/19 00:00 12/05/19 05:30 Novolog Flexpen SC 01/04/20 00:00 Not Given Q6 [facility] Protocol Insulin Glargine 0 units 12/04/19 18:12 12/04/19 20:34 Perico Rodríguezar Pen SC 01/01/20 20:59 40 units BID BERNICE Administration Protocol Levothyroxine Sodium 137 mcg 12/03/19 06:30 12/05/19 06:06 Levothyroxine Sodium PO 01/02/20 06:29 137 mcg DAILYBB BERNICE Administration Lisinopril 2.5 mg 12/03/19 09:00 12/04/19 09:07 Zestril PO 01/02/20 08:59 2.5 mg DAILY BERNICE Administration Lorazepam 1 mg 12/02/19 15:30 12/04/19 23:55 Ativan PO 01/01/20 15:29 1 mg Q6H PRN Administration Anxiety/spasms Metoprolol Tartrate 100 mg 12/02/19 21:00 12/05/19 06:06 Lopressor PO 01/01/20 20:59 100 mg BID BERNICE Administration Oxycodone HCl 5 - 10 mg 12/02/19 15:30 12/05/19 02:33 Roxicodone Immediate Rel PO 12/16/19 15:29 10 mg Q4H PRN Administration Moderate-Severe Pain Pantoprazole Sodium 40 mg 12/03/19 09:00 12/04/19 09:05 Protonix PO 01/02/20 08:59 40 mg DAILY BERNICE Administration NPO Date Last Intake of Fluids: 12/05/19 Time Last Intake of Fluids: 00:00 Date Last Intake of Solids: 12/05/19 Time Last Intake of Solids: 00:00 Last Intake of Solids Comment: Patient finished eating a lollypop at 0000 Past Medical History Medical History Adenomatous polyp of colon (Chronic) Benign essential hypertension (Chronic) Depression (Chronic) Diabetes mellitus type 2, uncontrolled (Chronic) Dyslipidemia GERD (gastroesophageal reflux disease) HTN (hypertension) Hypercholesterolemia (Chronic) Hypothyroidism (Chronic) Lumbosacral radiculopathy at L3 (Chronic) Morbid obesity (Chronic) Obstructive sleep apnea (Chronic) Opiate dependence (Chronic) Paroxysmal atrial fibrillation (Chronic) Tobacco use Past Family History Family History Other Cancer Coronary heart disease Past Surgical History Surgical History History of colonoscopy 03/2018 - Dr Villela. adenomatous polyps History of esophagogastroduodenoscopy (EGD) 03/2018 - Dr Villela History of lumbar surgery 2009 Social History Smoking Status: Current every day smoker tobacco type: cigarettes Smoking cigarettes per day: 1.5ppd Do You Dip or Chew Tobacco: Yes (occasionally) Hx Alcohol Use: Yes Alcohol type: beer, wine and hard liquor alcohol intake frequency: holidays/special occasions only Hx Substance Use: No Physical Exam Vital Signs Last Vital Signs Temp 36.9 C 12/05/19 07:04 Pulse 57 L 12/05/19 07:04 Resp 16 12/05/19 07:04 BP 143/87 H 12/05/19 07:04 Pulse Ox 98 12/05/19 07:04 Testing Laboratory Results 12/02/19 17:12 12/02/19 17:12 Hemoglobin A1c 11.1 % (4.5-5.6) H 12/02/19 17:12 12/05/19 12/04/19 05:17 23:52 POC Glucose 124 H 114 H Electrocardiogram Date: 12/03/19 Findings: + SB @ (70)
[2019-12-05] MEDS ORDERED: INSULIN GLARGINE SOLOSTAR 100 UNITS/ML 3 ML PEN SC STA (09:31)
[2019-12-05] MEDS: INSULIN GLARGINE SOLOSTAR 100 UNITS/ML 3 ML PEN SC SCH ×2 (09:32→20:15)
[2019-12-05] MEDS: PANTOprazole 40 MG TAB PO SCH (09:34)
[2019-12-05] MEDS: CHLORTHALIDONE 25 MG TAB PO SCH (09:34)
[2019-12-05] MEDS: DOCUSATE SODIUM 100 MG CAP PO SCH (09:34)
[2019-12-05] MEDS: DULOXETINE HCL 30 MG CAP PO SCH (09:34)
[2019-12-05] MEDS ORDERED: DEXAMETHASONE SOD INJ 4 MG/ML VIAL ONE (10:51)
[2019-12-05] MEDS ORDERED: LIDOCAINE HCL 2% 2 ML VIAL/AMP(20MG/ML) INFIL ONE (10:51)
[2019-12-05] MEDS ORDERED: fentaNYL citrate 100 MCG/2 ML VIAL ONE ×2 (10:51→17:44)
[2019-12-05] MEDS ORDERED: PROPOFOL IV EMULSION 10 MG/ML 20 ML VIAL IV ONE ×2 (10:51→12:59)
[2019-12-05] MEDS ORDERED: NEOSTIGMINE METHYLSULFATE 1 MG/ML 10ML VIAL ONE (10:51)
[2019-12-05] MEDS ORDERED: MIDAZOLAM HCL 1 MG/ML 2ML VIAL ONE (10:51)
[2019-12-05] MEDS ORDERED: GLYCOPYRROLATE 0.2 MG/ML VIAL ONE (10:51)
[2019-12-05] MEDS ORDERED: ONDANSETRON INJ 2 MG/ML 2 ML VIAL ONE (10:51)
[2019-12-05] MEDS ORDERED: ATROPINE SULFATE 0.1 MG/ML 10ML SYR IV PRN (11:21)
[2019-12-05] MEDS ORDERED: ONDANSETRON INJ 2 MG/ML 2 ML VIAL IV PRN ×2 (11:21→19:23)
[2019-12-05] MEDS ORDERED: ePHEDrine sulfate 50 MG/ML AMP IV PRN (11:21)
[2019-12-05] MEDS ORDERED: ROCURONIUM BROMIDE 10 MG/ML 5 ML VIAL ONE ×9 (11:24→15:33)
[2019-12-05] MEDS ORDERED: SUCCINYLCHOLINE CHLORIDE 20 MG/ML 10 ML VIAL ONE (11:24)
--- NOTE | 2019-12-05 11:29 | History & Physical Bridge Note ---
Date of Service December 05, 2019 History & Physical Bridge Note I have examined the patient, reviewed the History & Physical and in the interval since the performance of the History & Physical I have noted the following changes of clinical significance: no changes noted
[2019-12-05] MEDS ORDERED: CEFAZOLIN 3000MG 72.5 ML IV ONE (11:35)
[2019-12-05] MEDS ORDERED: CEFAZOLIN 3000MG/72.5 ML BAG IV ONE (11:40)
[2019-12-05] MEDS ORDERED: BUPIVACAINE/EPINEPHRINE 0.5% MPF 1:200,000 10 ML VIAL ONE (11:47)
[2019-12-05] MEDS ORDERED: THROMBIN FOR SOLN 20000 UNIT KIT ONE (11:48)
[2019-12-05] MEDS ORDERED: BACITRACIN INJ 50,000 UNIT VIAL ONE (11:48)
[2019-12-05] MEDS ORDERED: PROPOFOL IV EMULSION 10 MG/ML 100 ML VIAL IV ONE ×2 (11:52)
[2019-12-05] MEDS ORDERED: HYDROmorphone INJ 2 MG/ML SYR/VIAL ONE ×2 (12:57→17:44)
[2019-12-05] MEDS ORDERED: ALBUTEROL HFA INHALER 8.5 GM ONE (13:17)
[2019-12-05] MEDS ORDERED: FLOSEAL HEMOSTATIC MATRIX 10ML TOP ONE (13:35)
--- NOTE | 2019-12-05 14:06 | Procedure Note ---
Procedure Note Date of Service December 05, 2019 Radial arterial line placed in OR4 after induction in preparation for back surgery with Dr. Silva. Right wrist prepped with chlorhexidine and draped with sterile towels. 20 G angiocath placed under sterile technique with ultra sound guidance utilizing sterile gloves, surgical hats and masks. Catheter threaded using seldinger technique with return of pulsatile, bright red blood. Site covered with occlusive dressing and taped in place. Waveform consistent with correct arterial placement. After placement, fingers of procedural hand had normal perfusion. Patient tolerated procedure well without complications. Sully Enriquez MD, PhD Coding
[2019-12-05] MEDS ORDERED: ePHEDrine sulfate 50 MG/ML SYR ONE (14:16)
[2019-12-05] MEDS ORDERED: PHENYLEPHRINE HCL 10 MG/ML VIAL ONE (14:16)
[2019-12-05] MEDS ORDERED: PHENYLEPHRINE 100MCG/ML 5ML SYR ONE (14:16)
[2019-12-05] MEDS ORDERED: ALBUMIN HUMAN 5% 12.5 GM/250 ML VIAL IV ONE (14:46)
--- NOTE | 2019-12-05 15:19 | Pharmacy Report ---
Pharmacy Glycemic Short Note 2 - Date of Service December 05, 2019 - Glycemic Short BSG Results (Last 24 hours): 12/04/19 12/04/19 12/04/19 16:58 20:26 23:52 POC Glucose 240 H 160 H 114 H 12/05/19 12/05/19 12/05/19 05:17 10:57 13:24 POC Glucose 124 H 94 93 ASSESSMENT: * Pt taken to OR today. He received 8mg IV DXM perioperatively. Given his endogenous insulin resistance, A1C of 11.1%, I surmise his insulin requirements will increase substantially. PLAN FOR INPATIENT GLYCEMIC CONTROL: * Hold outpatient oral diabetes medications * Basal insulin * Lantus 30u given this AM for NPO status. We will order a lantus scale for dinner tonight: * give 40u for BSG <120 * give 60u for BSGs 120-250 * give 80u for BSGs > 250 (pt takes 80u BID at home) * Bolus insulin - will tighten * NovoLog per scale ACHS or Q6hrs while NPO * Goal Range: Low 100 mg/dL - High 140 mg/dL * Correction Factor: 10 mg/dL/unit * Nutritional / Prandial insulin per carb ratio of 1 unit per 4 grams CHO consumed * adding overnight checks
[2019-12-05] MEDS ORDERED: CEFAZOLIN 250 MG/ML 1 GM VIAL ONE ×2 (16:24)
--- NOTE | 2019-12-05 16:51 | Operative Report ---
Post Operative Report Pre & Post Diagnosis Operation Date: 12/05/19 11:45 Pre-Op Diagnosis: LUMBER SPINE PAIN,SEVERE LUMBER SPINE STENOSIS Post-Op Diagnosis: LUMBER SPINE PAIN,SEVERE LUMBER SPINE STENOSIS I identified the patient and participated in the time-out.: Yes Procedure Operation Date: 12/05/19 11:45 Actual Procedures #1 removal of instrumentation L4-5 L5-S1. #2 exploration of fusion L4-5 L5-S1. #3 lumbar decompression bilateral medial facetectomies and discectomies T10-T11 T11-T12 T12 L1-L2-L3 L3-L4. #4 posterior spinal fusion T10-L4. #5 placement posterior segmental instrumentation T10-L4. #6 interbody fusion L3-4. #7 placement of peek cage 12 x 26 mm at L3-4. #8 placement of locally harvested morselized autograft in the posterior lateral gutters. #9 placement infuse collagen sponge, master graft in the posterior lateral gutters and ostial amp and interbody space. Surgeon Chris Silva, DO Predatory Animal Exterminator Natividad Mcelroy Estimated Blood Loss 1,000 Findings See Below The patient is 5 foot 11 inches tall weighing 136 kg with a BMI in excess of 41. The patient's body habitus acquired our deepest retractors and longest instruments in order to perform his procedure. This added significant technical difficulty adding at least 50% increase in operative time. Specimens None Indications This is a 54-year-old male that presents with above-mentioned diagnosis in light of his severe canal compression we like to undergo urgent decompression fusion. Description of Procedure Patient was met with identified informed consent obtained. Patient was then taken to the operative suite underwent intubation placed in a prone position the Sumit table on top of the Dajuan frame. All bony prominences well-padded eyes inspected to ensure no external pressure placed upon up at this point the thoracolumbar spine was prepped and draped in a sterile fashion. Sharp dissection with the assistance of Bovie cautery was performed down to and exposing the lamina and transverse processes of [id number] L1-L2-L3 and instrumentation at L4-L5 and S1 levels bilaterally. I then proceeded move the hardware bilaterally explore the fusion mass noting it to be intact. Then performed a complete laminectomy from a caudal cephalad fashion of L3 L2 T12 T11 T10. This also included removal of the herniated fragments of disc in the thoracic canal. Pedicle screws were then placed in T10-T11 T12-L1 L2-L3-L4 bilaterally with assistance of fluoroscopy the proper sized madeleine placed. By way of a trans-foramen approach on the right complete discectomy of L3-4 was performed endplates curetted to subcortical and bone and a 12 x 26 mm peek cage filled with osteo-bone graft tapped in position. Rods were then locked in position a cross-link locked in position. The transverse processes from T10-L4 were then burred to subcortical bleeding bone and infuse collagen sponge, master graft local autograft placed in the posterior lateral gutters. 15 round LEOBARDO drain inserted. Incision was closed with 1 Vicryl in the fascia 2-0 Vicryl subcutaneously and 4 Monocryl for final skin closure. Steri-Strip sterile dressings placed. Patient will continue PACU stable condition. Please note Natividad Mcelroy was present at the entire procedure involved the patient positioning complex portions of the surgery and final skin closure. Lastly spinal cord monitoring was utilized that the procedure no changes noted. I attest to the content of the Intraoperative Record and any orders documented therein. Any exceptions are noted below.
--- NOTE | 2019-12-05 16:59 | Fluoroscopy Report ---
FL lumbar spine 2-3V CLINICAL HISTORY: T10-L4 DECOMPRESSION AND FUSIONpain COMPARISON STUDY: None FLUOROSCOPY TIME: 34 seconds NUMBER OF FLUOROSCOPIC IMAGES: 6 FINDINGS: Image intensifier was utilized for intraoperative laminectomy and fusion of the low thoraci c and lumbar spine. IMPRESSION: Image intensifier usage for intraoperative assistance for a T10-L4 decompression and fusi on ACT 112: Negative or not required by law. The above report was generated using voice recognition software. It may contain grammatical, syntax or spelling errors. Electronically signed by: Tristan Ferrer M.D. 12/05/2019 4:58 PM
[2019-12-05] MEDS: fentaNYL citrate 100 MCG/2 ML VIAL IV PRN ×2 (17:50→17:55)
[2019-12-05] MEDS: HYDROmorphone INJ 2 MG/ML SYR/VIAL IV PRN ×7 (18:06→18:45)
--- NOTE | 2019-12-05 18:53 | Anesthesiology Progress Note ---
Date of Service December 05, 2019 Anesthesia Post Procedure Vital Signs Vital Signs: Temp Pulse Pulse Pulse Resp BP BP 12/05/19 18:45 36.4 C L 74 17 115/60 12/05/19 18:35 36.4 C L 68 17 110/56 L 12/05/19 18:25 36.4 C L 68 19 113/56 L 12/05/19 18:15 36.4 C L 72 15 114/58 L 12/05/19 18:05 73 20 116/55 L 12/05/19 17:55 61 22 108/54 L 12/05/19 17:45 64 22 101/57 L 12/05/19 17:35 64 27 H 100/55 L 12/05/19 17:26 36.2 C L 64 16 118/60 12/05/19 10:57 36.9 C 62 20 129/72 12/05/19 07:04 36.9 C 57 L 16 143/87 H 12/05/19 06:02 62 149/80 H 12/04/19 23:56 37.2 C 65 20 152/91 H 12/04/19 20:28 66 140/87 Pulse Ox 12/05/19 18:45 96 12/05/19 18:35 96 12/05/19 18:25 96 12/05/19 18:15 99 12/05/19 18:05 95 12/05/19 17:55 97 12/05/19 17:45 97 12/05/19 17:35 97 12/05/19 17:26 100 12/05/19 10:57 97 12/05/19 07:04 98 12/05/19 06:02 12/04/19 23:56 97 12/04/19 20:28 Pain Intensity Right Leg: Pain Intensity: 8 Back: Pain Intensity: 9 Transfer of Care Handoff Completed per policy Notes Mental Status: alert / awake / arousable Patient Amnestic to Procedure: Yes Nausea / Vomiting: adequately controlled Pain: adequately controlled Airway Patency, RR, SpO2: stable & adequate BP & HR: stable & adequate Hydration State: stable & adequate Anesthetic Complications: no major complications apparent
[2019-12-05] MEDS ORDERED: DO NOT ADMINISTER PNEUMOCOCCAL VACCINE PRN (19:23)
[2019-12-05] MEDS ORDERED: SOD PHOSPHATE/SOD BIPHOSPHATE ENEMA 132 ML BTL PR PRN (19:23)
[2019-12-05] MEDS ORDERED: bisacodyL 10 MG SUPP PR PRN (19:23)
[2019-12-05] MEDS ORDERED: ACETAMINOPHEN 1,000 MG/100 ML VIAL IV PRN (19:23)
[2019-12-05] MEDS ORDERED: ALUMINUM/MAGNESIUM SUSP 30 ML UDC PO PRN (19:23)
[2019-12-05] MEDS ORDERED: MAGNESIUM HYDROXIDE SUSP 30 ML UDC PO PRN (19:23)
[2019-12-05] MEDS ORDERED: SEMAGLUTIDE 0.25 MG SQ SCH (19:23)
[2019-12-05] MEDS ORDERED: ONDANSETRON 4 MG OD TAB PO PRN (19:23)
[2019-12-05] MEDS ORDERED: FAMOTIDINE 20 MG TAB PO PRN (19:23)
[2019-12-05] MEDS ORDERED: HYDROmorphone INJ 1 MG/ML SYRINGE IV PRN (19:23)
[2019-12-05] MEDS ORDERED: HYDROmorphone INJ 0.5 MG/0.5 ML SYR IV PRN (19:23)
[2019-12-05] MEDS ORDERED: METOCLOPRAMIDE HCL INJ 5 MG/ML 2 ML VIAL IV PRN (19:23)
[2019-12-05] MEDS ORDERED: LORazepam 0.5 MG/1 ML VIAL IV PRN (19:23)
[2019-12-05] MEDS ORDERED: PROMETHAZINE HCL 12.5 MG in SODIUM CHLORIDE 0.9% 50 ML IV PRN (19:23)
[2019-12-05] MEDS ORDERED: NALOXONE HCL 0.4 MG/1 ML VIAL/CARP IV PRN (19:23)
[2019-12-05] MEDS ORDERED: DO NOT ADMINISTER FLU VACCINE PRN (19:23)
[2019-12-05] MEDS: SODIUM CHLORIDE 0.9% 1000ML 1,000 ML IV SCH (19:50)
[2019-12-05] MEDS: CEFAZOLIN 2000MG 2,000 MG/15 ML SYR IV SCH (20:17)
[2019-12-05] MEDS: ATORVASTATIN 40 MG TAB PO SCH (21:05)
[2019-12-05] MEDS: BuPROPion XL 150 MG TABCR PO SCH (21:05)
[2019-12-05] MEDS: DOCUSATE SODIUM/SENNA 50/8.6MG TAB PO SCH (21:05)
[2019-12-05] MEDS ORDERED: Nursing to Pharmacy Communication ONE (21:09)
[2019-12-05] MEDS: KETOROLAC 30 MG/ML VIAL IV SCH (23:59)
[2019-12-06] MEDS: INSULIN ASPART 100 UNITS/ML 3 ML PEN SC SCH ×6 (00:05→21:33)
[2019-12-06] MEDS: TRAMADOL HCL 50 MG TABLET PO PRN ×2 (02:25→06:39)
[2019-12-06] MEDS: SODIUM CHLORIDE 0.9% 1000ML 1,000 ML IV SCH (02:27)
[2019-12-06] MEDS: OXYCODONE HCL IR 5 MG TAB (IMMEDIATE RELEASE) PO PRN ×4 (04:06→22:09)
[2019-12-06] MEDS: CEFAZOLIN 2000MG 2,000 MG/15 ML SYR IV SCH (04:08)
[2019-12-06] MEDS: POLYETHYLENE (MIRALAX) 17 GM PACK PO SCH ×4 (05:52→23:33)
[2019-12-06] MEDS: KETOROLAC 30 MG/ML VIAL IV SCH ×3 (05:53→17:58)
[2019-12-06] MEDS: LEVOTHYROXINE SODIUM 137 MCG TABLET PO SCH (05:53)
[2019-12-06 07:39] LABS: Basophils # (auto) 0.01 K/uL (0-0.2); Basophils % (auto) 0.1 %; Hematocrit (blood only) 35.3 % (42-52); Hemoglobin 11.8 g/dL (14.0-18.0); Immature Granulocytes % (auto) 0.7 %; Lymphocytes % (auto) 11.3 %; Mean Corpuscular Hemoglobin 29.1 pg (25-34); Mean Corpuscular Hgb Conc 33.4 g/dL (32-36); Mean Corpuscular Volume 87.2 fL (80-100); Mean Platelet Volume 9.3 fL (7.4-10.4); Monocytes # (auto) 1.29 K/uL (0.11-0.59); Monocytes % (auto) 8.6 %; Neutrophils # (auto) 11.96 K/uL (1.4-6.5); Neutrophils % (auto) 79.3 %; Platelet Count 295 K/uL (130-400); RDW Coefficient of Variation 14.6 % (11.5-14.5); RDW Standard Deviation 46.7 fL (36.4-46.3); Red Blood Count 4.05 M/uL (4.7-6.1); White Blood Count 15.06 K/uL (4.8-10.8)
--- NOTE | 2019-12-06 07:42 | Anesthesiology Progress Note ---
Date of Service December 06, 2019 Anesthesia Post Procedure Vital Signs Vital Signs: Temp Pulse Pulse Resp BP BP Pulse Ox 12/06/19 03:55 36.8 C 70 18 147/77 H 93 12/05/19 23:46 36.6 C 66 17 105/63 91 12/05/19 22:56 36.8 C 63 20 149/82 H 92 12/05/19 21:38 36.6 C 70 18 118/71 94 12/05/19 20:28 36.7 C 71 18 127/73 94 12/05/19 20:04 36.7 C 69 18 125/71 95 12/05/19 19:20 36.9 C 75 20 120/71 95 12/05/19 19:11 36.4 C L 76 19 128/63 95 12/05/19 18:55 36.4 C L 69 18 124/60 96 12/05/19 18:45 36.4 C L 74 17 115/60 96 12/05/19 18:35 36.4 C L 68 17 110/56 L 96 12/05/19 18:25 36.4 C L 68 19 113/56 L 96 12/05/19 18:15 36.4 C L 72 15 114/58 L 99 12/05/19 18:05 73 20 116/55 L 95 12/05/19 17:55 61 22 108/54 L 97 12/05/19 17:45 64 22 101/57 L 97 12/05/19 17:35 64 27 H 100/55 L 97 12/05/19 17:26 36.2 C L 64 16 118/60 100 12/05/19 10:57 36.9 C 62 20 129/72 97 Notes Mental Status: alert / awake / arousable and participated in evaluation Patient Amnestic to Procedure: Yes Nausea / Vomiting: adequately controlled Pain: adequately controlled Airway Patency, RR, SpO2: stable & adequate BP & HR: stable & adequate Hydration State: stable & adequate Anesthetic Complications: no major complications apparent and Pt Satisfied with anesthetic care
[2019-12-06] MEDS: PANTOprazole 40 MG TAB PO SCH (07:46)
[2019-12-06] MEDS: METOPROLOL TARTRATE 100 MG TAB PO SCH ×2 (07:46→21:35)
[2019-12-06] MEDS: ASPIRIN 81 MG ECTAB PO SCH (07:46)
[2019-12-06] MEDS: DULOXETINE HCL 30 MG CAP PO SCH (07:46)
[2019-12-06] MEDS: CHLORTHALIDONE 25 MG TAB PO SCH (07:46)
--- NOTE | 2019-12-06 08:33 | Hospitalist Progress Note ---
Date of Service December 06, 2019 Assessment & Plan (1) Status post lumbar surgery: (2) Lumbar radiculopathy: Pt admitted on 12/02/19 for progressive back pain with worsening over the past month with weakness and numbness of right leg. H/O Lumbar surgery in 2008. Venous Doppler BLE: No evidence of lower extremity DVT. Post op day# 1 S/P revisionL4-S1, decompression and fusion T10-L4 by Dr Silva EBL#1000ml Total LEOBARDO drain output #561ml -pain management per ortho, pt has IV Dilaudid ordered prn and will suggest use prn -wound management per ortho -PT/OT as appropriate -DVT prophylaxis per ortho -incentive spirometry -Hgb: 11.8 from 13.6 pre-op. Continue to monitor H&H for acute blood loss anemia (3) Diabetes mellitus type 2, uncontrolled: A1c: 13.8 on 10/07/2019 Following with outpatient [facility] glycemic pharmacy and insulin adjustments, Ozempic has not been started yet -Hold metformin, Ozempic -Basal bolus insulin and sliding scale -Monitor BSG's, diabetic diet -Glycemic consult in place, appreciate co-management (4) HTN (hypertension): BP's stable -Continue chlorthalidone, lisinopril, metoprolol (5) Dyslipidemia: -Continue atorvastatin (6) Hypothyroidism: TSH: 4.3 on 10/07/2019 -Continue levothyroxine (7) Depression: -Continue bupropion, duloxetine (8) GERD (gastroesophageal reflux disease): -Continue PPI (9) Morbid obesity: BMI: 41.8 Lifestyle modifications recommended (10) Tobacco use: -Pt reports wishing to quit smoking -Pt denies nicotine patch at this time DVT Prophylaxis -SCDs per ortho Disposition per primary service Follows with Dr Tong for routine care Patient seen in collaboration with Dr. Box. Please see addendum. Thank you for this consultation. We will follow the patient with you during their hospital stay. You can reach a member of the [facility] Hospitalist Team 15/06 via pager @ [phone]. Supervising Physician Co-Signing Physician Notes Attending addendum: Seen and examined care coordinated with Kylee Moffett PA-C 54-year-old male with multilevel DJD of lumbar spine, underwent spinal decompression surgery today We will check H&H tomorrow to assess for acute blood loss anemia secondary to postoperative status Follow BSG closely patient had underlying uncontrolled diabetes, expected blood sugar to be elevated due to IV steroid given. Postoperative spinal surgery Pharmacy consult for glycemic management Continue PT OT pain management as per orthopedic Please refer to further documentation by Lashaun Moffett PA-C for discussion of other chronic issues Corina Box MD Subjective Pt seen and examined. Lying supine in bed. POD #1 s/p revisionL4-S1, decompression and fusion T10-L4. Reports having moderate back pain since surgery not well controlled with oxycodone, IV Tylenol. Reports prior leg weakness, paresthesias and pain have resolved since surgery. Drinking fluids but doesn't have much appetite. Has Gonsales cath in place. Reports passing flatus. Denies fever/chills, diaphoresis, N/V, ARREGUIN, dizziness, syncope, vision changes, neck pain, CP, SOB, orthopnea, palpitations, cough, sore throat, abdominal pain, extremity edema, rashes. Review of Systems 2 Review of Systems: All systems reviewed & are unremarkable except as noted in HPI & below Physical Exam Physical Exam: General: mild distress secondary to back pain, lying supine in bed, obese Head: normocephalic, atraumatic Eyes: conjunctiva non-injected, anicteric ENT: normal inspection external ears, nose, mucous membranes moist Neck: supple, trachea midline Lungs: clear, no respiratory distress, no wheezing/rhonchi/rales CV: RRR, no murmur, no pretibial edema Abd: normal BS, soft, non-tender Back: +LEOBARDO drain in place with serosanguineous drainage Ext: no cyanosis, no calf tenderness; bilateral pedal pushes and pulls intact, distal pulses intact, sensation to light touch intact Neuro: A&O x 3, no focal deficits noted, normal affect Skin: warm, dry; left lateral foot with eschar without surrounding erythema or edema, + right lower leg and foot without surrounding erythema Results & Data Vital Signs (Past 12 Hours) Vital Signs Temp Pulse Resp BP BP Pulse Ox 12/06/19 03:55 36.8 C 70 18 147/77 H 93 12/05/19 23:46 36.6 C 66 17 105/63 91 12/05/19 22:56 36.8 C 63 20 149/82 H 92 12/05/19 21:38 36.6 C 70 18 118/71 94 Laboratory Results Short CBC 12/06/19 Range/Units 06:47 WBC 15.06 H (4.8-10.8) K/uL Hgb 11.8 L (14.0-18.0) g/dL Hct 35.3 L (42-52) % Plt Count 295 (130-400) K/uL
[2019-12-06] MEDS: INSULIN GLARGINE SOLOSTAR 100 UNITS/ML 3 ML PEN SC SCH ×2 (08:52→21:32)
[2019-12-06] MEDS ORDERED: B COMPLEX WITH VITAMIN C PO SCH (09:00)
--- NOTE | 2019-12-06 09:02 | Orthopedic Progress Note ---
Date of Service December 06, 2019 Assessment & Plan (1) Myelopathy concurrent with and due to spinal stenosis of thoracic region: This time we will increase his pain medication in hopes of better control. If this fails to improve his status and may consider consultation with pain management. Also begin physical therapy occupational therapy may be a candidate for rehab. Present on Admission?: Yes Subjective Patient complaining of significant back pain but marked improvement of his leg symptoms. Physical Exam Physical Exam: On exam he seems have reasonable strength detailed testing bilateral extremities. Results & Data Vital Signs (Past 12 Hours) Vital Signs Temp Pulse Resp BP BP Pulse Ox 12/06/19 07:05 36.7 C 70 18 164/85 H 96 12/06/19 03:55 36.8 C 70 18 147/77 H 93 12/05/19 23:46 36.6 C 66 17 105/63 91 12/05/19 22:56 36.8 C 63 20 149/82 H 92 12/05/19 21:38 36.6 C 70 18 118/71 94
[2019-12-06] MEDS: HYDROmorphone INJ 1 MG/ML SYRINGE IV PRN ×4 (12:01→23:36)
--- NOTE | 2019-12-06 14:44 | Pharmacy Report ---
Pharmacy Glycemic Short Note 2 - Date of Service December 06, 2019 - Glycemic Short BSG Results (Last 24 hours): 12/05/19 12/05/19 12/05/19 17:30 19:37 21:03 POC Glucose 171 H 185 H 224 H 12/06/19 12/06/19 12/06/19 00:03 03:59 08:01 POC Glucose 187 H 183 H 155 H 12/06/19 11:55 POC Glucose 117 H ASSESSMENT: 12/06 * Patient is currently receiving an average of 100 units of insulin per day * 90 units of basal insulin * 14 units of prandial/correctional insulin (NPO for most of the day) * BSGs ranging 94-224 over the past 24hrs * Risk factors for insulin resistance are decreasing over the past 24hrs * Steroid dose should wear off today * Now POD # 1 s/p surgery * Anticipating insulin regimen will need decreased for the next 24hrs due to steroid effects wearing off. Basal requirements prior to surgery were between 40-80 units per day. Will adjust basal dose to reflect this. BSG at lunch down to 117 mg/dL so will loosen bolus parameters at this time. 12/05 * Pt taken to OR today. He received 8mg IV DXM perioperatively. Given his endogenous insulin resistance, A1C of 11.1%, I surmise his insulin requirements will increase substantially. PLAN FOR INPATIENT GLYCEMIC CONTROL: * Hold outpatient oral diabetes medications * Basal insulin * Lantus BID per the following scale: * 20 units for BSG < 140 * 40 units for BSG 140 or above * Bolus insulin - loosen * NovoLog per scale ACHS or Q6hrs while NPO * Goal Range: Low 100 mg/dL - High 140 mg/dL * Correction Factor: 15 mg/dL/unit * Nutritional / Prandial insulin per carb ratio of 1 unit per 6 grams CHO consumed Discharge Recommendations: * A1c = 11.1% on 12/02/19. This is down from 13.8% on 10/07/19. * Patient follows closely w/ [facility] clinic and is planning to start Ozempic. * Since patient's A1c has improved significantly and will be starting a GLP-1 agonist, recommend to resume outpatient regimen on discharge and f/u with [facility] clinic.
[2019-12-06] MEDS: ATORVASTATIN 40 MG TAB PO SCH (21:35)
[2019-12-06] MEDS: DOCUSATE SODIUM/SENNA 50/8.6MG TAB PO SCH (21:35)
[2019-12-06] MEDS: BuPROPion XL 150 MG TABCR PO SCH (21:35)
[2019-12-06] MEDS: ACETAMINOPHEN 500 MG TAB PO PRN (22:09)
[2019-12-07] MEDS: OXYCODONE HCL IR 5 MG TAB (IMMEDIATE RELEASE) PO PRN ×2 (03:00→07:39)
[2019-12-07] MEDS: HYDROmorphone INJ 1 MG/ML SYRINGE IV PRN ×6 (04:50→22:23)
[2019-12-07] MEDS: LEVOTHYROXINE SODIUM 137 MCG TABLET PO SCH (06:02)
[2019-12-07] MEDS: POLYETHYLENE (MIRALAX) 17 GM PACK PO SCH ×3 (06:02→18:23)
[2019-12-07 06:08] LABS: Basophils # (auto) 0.02 K/uL (0-0.2); Basophils % (auto) 0.2 %; Eosinophils # (auto) 0.12 K/uL (0-0.5); Eosinophils % (auto) 0.9 %; Hemoglobin 10.6 g/dL (14.0-18.0); Immature Granulocytes # (auto) 0.07 K/uL (0.00-0.02); Immature Granulocytes % (auto) 0.5 %; Lymphocytes # (auto) 2.23 K/uL (1.2-3.4); Lymphocytes % (auto) 17.4 %; Mean Corpuscular Hemoglobin 28.8 pg (25-34); Mean Corpuscular Hgb Conc 33.1 g/dL (32-36); Monocytes # (auto) 1.44 K/uL (0.11-0.59); Monocytes % (auto) 11.2 %; Neutrophils # (auto) 8.97 K/uL (1.4-6.5); Neutrophils % (auto) 69.8 %; Platelet Count 265 K/uL (130-400); RDW Coefficient of Variation 14.6 % (11.5-14.5); RDW Standard Deviation 46.1 fL (36.4-46.3); Red Blood Count 3.68 M/uL (4.7-6.1); White Blood Count 12.85 K/uL (4.8-10.8)
[2019-12-07 06:34] LABS: BUN Creatinine Ratio 29.4 (10-20); Calcium 8.6 mg/dl (8.5-10.1); Creatinine Clr Calc Pharmacy 135.2 ml/min; Est GFR (African American) 112.9; Est GFR (Non-African American) 97.4; Potassium 3.7 mmol/L (3.5-5.1)
--- NOTE | 2019-12-07 08:37 | Hospitalist Progress Note ---
Date of Service December 07, 2019 Assessment & Plan (1) Status post lumbar surgery: (2) Lumbar radiculopathy: Pt admitted on 12/02/19 for progressive back pain with worsening over the past month with weakness and numbness of right leg. H/O Lumbar surgery in 2008. Venous Doppler BLE: No evidence of lower extremity DVT. Post op day# 2 S/P revisionL4-S1, decompression and fusion T10-L4 by Dr Silva EBL#1000ml Total LEOBARDO drain output #365ml in past 24 hours Post op pt with back pain -pain management per ortho, pt has IV Dilaudid increased -consider pain management consult -Hgb: 10.6 from 11.8 yesterday and from 13.6 pre-op. blood loss secondary to procedure. Continue to monitor -wound management per ortho -PT/OT as appropriate -DVT prophylaxis per ortho -incentive spirometry (3) Diabetes mellitus type 2, uncontrolled: A1c: 13.8 on 10/07/2019 Following with outpatient [facility] glycemic pharmacy and insulin adjustments, Ozempic has not been started yet -Hold metformin, Ozempic -Monitor BSG's, diabetic diet -Pt had received IV steroids -Basal bolus insulin and sliding scale -Glycemic consult in place, appreciate assistance (4) HTN (hypertension): BPs on low side yesterday afternoon and evening at 97/56. This am 118/76 -Hold chlorthalidone -Continue lisinopril, metoprolol with holding parameters (5) Dyslipidemia: -Continue atorvastatin (6) Hypothyroidism: TSH: 4.3 on 10/07/2019 -Continue levothyroxine (7) Depression: -Continue bupropion, duloxetine (8) GERD (gastroesophageal reflux disease): -Continue PPI (9) Morbid obesity: BMI: 41.8 Lifestyle modifications recommended (10) Tobacco use: -Pt wishes to quit smoking -Pt denies nicotine patch at this time DVT Prophylaxis -SCDs per ortho Disposition per primary service Follows with Dr Tong for routine care Patient seen in collaboration with Dr. Cleveland. Please see addendum. Supervising Physician Co-Signing Physician Notes Attending addendum: Seen and examined, care coordinated with Charisse Moffett PA-C, please see further detail in her note above. Pt is a 54-year-old male with multilevel DJD of lumbar spine, who underwent spinal decompression surgery POD#2. Currently sitting up in bed, in no acute distress, however continues to report back pain. Says his legs feel much better, denies any numbness in LE b/l. Lungs are clear to auscultation, no wheezing or rhonchi noted. Heart sounds regular. Abdomen, soft, nondistended.+ bowel sounds. LE w/o any significant edema, moves extremities spontaneously and w/o difficulty. Somewhat hypotensive overnight, but asymptomatic. Hgb down to 10.6 from 11.8 yesterday. Sodium down to 131 (poss. chronic Na 133 in 2018). Recommen d to monitor BP, H&H and repeat BMP at AM. Continue PT/OT and pain management as per orthopedic service. Abhishek Cleveland MD Subjective Pt seen and examined. Sitting up in bed. C/O back pain without relief with oral pain medication. IV Dilaudid was increased yesterday and reports limited pain relief. Reports bilateral legs without pain, weakness, or paresthesias. States urinating without difficulty and without dysuria or hematuria. Passing flatus, no BM. Denies fever/chills, diaphoresis, N/V, ARREGUIN, dizziness, syncope, vision changes, neck pain, CP, SOB, orthopnea, palpitations, cough, rhinorrhea, abdominal pain, extremity edema, rashes. Review of Systems Review of Systems: All systems reviewed & are unremarkable except as noted in HPI & below Physical Exam Physical Exam: General: mild distress secondary to back pain, trying to find comfortable sitting position, obese Head: normocephalic, atraumatic Eyes: conjunctiva non-injected, anicteric ENT: normal inspection external ears, nose, mucous membranes moist Neck: supple, trachea midline Lungs: clear, no respiratory distress, no wheezing/rhonchi/rales CV: RRR, no murmur, no pretibial edema Abd: normal BS, soft, non-tender Back: +LEOBARDO drain in place with serosanguineous drainage; dressing in place is dry Ext: no cyanosis, no calf tenderness; bilateral pedal pushes and pulls intact, distal pulses intact, extension and flexion at bilateral knees intact, sensation to light touch intact Neuro: A&O x 3, no focal deficits noted, normal affect Skin: warm, dry Results & Data Vital Signs (Past 12 Hours) Vital Signs Temp Pulse Pulse Pulse Resp BP BP 12/07/19 07:31 37.4 C 83 18 118/76 12/06/19 23:04 36.9 C 69 16 104/65 12/06/19 21:30 70 97/56 L Pulse Ox 12/07/19 07:31 98 12/06/19 23:04 96 12/06/19 21:30 Laboratory Results Short CBC 12/07/19 Range/Units 05:27 WBC 12.85 H (4.8-10.8) K/uL Hgb 10.6 L (14.0-18.0) g/dL Hct 32.0 L (42-52) % Plt Count 265 (130-400) K/uL BMP 12/07/19 05:27 Sodium 131 L Potassium 3.7 Chloride 100 Carbon Dioxide 26 BUN 26 H Creatinine 0.88 Glucose 154 H Calcium 8.6
[2019-12-07] MEDS: DULOXETINE HCL 30 MG CAP PO SCH (08:43)
[2019-12-07] MEDS: ASPIRIN 81 MG ECTAB PO SCH (08:43)
[2019-12-07] MEDS: PANTOprazole 40 MG TAB PO SCH (08:44)
[2019-12-07] MEDS: METOPROLOL TARTRATE 100 MG TAB PO SCH ×2 (08:44→20:12)
[2019-12-07] MEDS: INSULIN ASPART 100 UNITS/ML 3 ML PEN SC SCH ×4 (09:26→21:15)
[2019-12-07] MEDS: INSULIN GLARGINE SOLOSTAR 100 UNITS/ML 3 ML PEN SC SCH ×2 (09:28→21:17)
[2019-12-07 09:58] LABS: iSTAT Creatinine 0.7 mg/dl (0.6-1.3); iSTAT Hemoglobin 12.9 g/dl (14.0-18.0); iSTAT Ionized Calcium 1.14 mmol/l (1.12-1.32); iSTAT Potassium 4.2 mmol/L (3.3-5.0)
--- NOTE | 2019-12-07 10:42 | Orthopedic Progress Note ---
Date of Service December 07, 2019 Assessment & Plan (1) Myelopathy concurrent with and due to spinal stenosis of thoracic region: At this time I will encourage him to continue with physical therapy I have requested a consultation with pain management for guidance regarding postoperative pain control. Hopefully he will be a candidate for discharge home in the next few days. Present on Admission?: Yes Subjective Patient's lower extremity symptoms have improved dramatically however his back pain is still quite incapacitating. Physical Exam Physical Exam: On exam he is sitting up at the bedside. He is markedly improved strength testing left lower extremity compared to his preoperative function. Results & Data Vital Signs (Past 12 Hours) Vital Signs Temp Pulse Pulse Resp BP Pulse Ox 12/07/19 07:31 37.4 C 83 18 118/76 98 12/06/19 23:04 36.9 C 69 16 104/65 96
[2019-12-07] MEDS: ATORVASTATIN 40 MG TAB PO SCH (20:12)
[2019-12-07] MEDS: BuPROPion XL 150 MG TABCR PO SCH (20:13)
[2019-12-07] MEDS: DOCUSATE SODIUM/SENNA 50/8.6MG TAB PO SCH (20:13)
[2019-12-08] MEDS: POLYETHYLENE (MIRALAX) 17 GM PACK PO SCH ×4 (00:40→18:33)
[2019-12-08] MEDS: HYDROmorphone INJ 1 MG/ML SYRINGE IV PRN ×3 (01:31→08:00)
[2019-12-08] MEDS: LEVOTHYROXINE SODIUM 137 MCG TABLET PO SCH (05:45)
[2019-12-08] MEDS: OXYCODONE HCL IR 5 MG TAB (IMMEDIATE RELEASE) PO PRN ×2 (05:48→09:54)
[2019-12-08 05:59] LABS: Hematocrit (blood only) 30.9 % (42-52); Hemoglobin 10.4 g/dL (14.0-18.0); Mean Corpuscular Hemoglobin 29.5 pg (25-34); Mean Corpuscular Hgb Conc 33.7 g/dL (32-36); Mean Corpuscular Volume 87.8 fL (80-100); Mean Platelet Volume 8.7 fL (7.4-10.4); Platelet Count 283 K/uL (130-400); RDW Coefficient of Variation 14.3 % (11.5-14.5); RDW Standard Deviation 45.5 fL (36.4-46.3); Red Blood Count 3.52 M/uL (4.7-6.1); White Blood Count 12.05 K/uL (4.8-10.8)
[2019-12-08 06:39] LABS: BUN Creatinine Ratio 24.2 (10-20); Calcium 8.9 mg/dl (8.5-10.1); Creatinine Clr Calc Pharmacy 143.3 ml/min; Est GFR (African American) 115.6; Est GFR (Non-African American) 99.8; Potassium 4.2 mmol/L (3.5-5.1)
--- NOTE | 2019-12-08 08:35 | Hospitalist Progress Note ---
Date of Service December 08, 2019 Assessment & Plan (1) Status post lumbar surgery: (2) Lumbar radiculopathy: Pt admitted on 12/02/19 for progressive back pain with worsening over the past month with weakness and numbness of right leg. H/O Lumbar surgery in 2008. Venous Doppler BLE: No evidence of lower extremity DVT. Post op day# 3 S/P revisionL4-S1, decompression and fusion T10-L4 by Dr Silva EBL#1000ml Total LEOBARDO drain output #310ml in past 24 hours Post op pt with back pain -pain management per ortho -pain management consulted for assistance with post-op pain -Hgb stable at 10.4. Pre-op Hgb: 13.6. Acute blood loss anemia -wound management per ortho -PT/OT as appropriate -DVT prophylaxis per ortho -incentive spirometry (3) Diabetes mellitus type 2, uncontrolled: A1c: 11.1 on 12/02/19 Following with outpatient [facility] glycemic pharmacy and insulin adjustments, Ozempic prescribed but has not been started yet -Hold metformin, Ozempic -Monitor BSG's, diabetic diet -Pt had received IV steroids perioperatively -BSGs 145-227 over past 24 hrs -Basal bolus insulin and sliding scale -Glycemic pharmacy on board, appreciate assistance (4) Hyponatremia: Na: 133 corrected for glucose of 143. From corrected sodium of 132 yesterday -Monitor BMP (5) HTN (hypertension): BPs on low side 12/06/19 & 12/07/19 with SBPs' in 90's. Asymptomatic -Chlorthalidone held 12/07/19 and 12/08/19 -BPs 100/63-128/63 past 24 hours -Continue lisinopril, metoprolol with holding parameters (6) Dyslipidemia: -Continue atorvastatin (7) Hypothyroidism: TSH: 4.3 on 10/07/2019 -Continue levothyroxine (8) Depression: -Continue bupropion, duloxetine (9) GERD (gastroesophageal reflux disease): -Continue PPI (10) Morbid obesity: BMI: 41.8 Lifestyle modifications recommended (11) Tobacco use: -Pt expresses desire to quit smoking. Encouraged pt smoking cessation -Pt denies nicotine patch at this time DVT Prophylaxis -SCDs per ortho Disposition per primary service Follows with Dr Tong for routine care Patient seen in collaboration with Dr. Cleveland. Please see addendum. Supervising Physician Co-Signing Physician Notes Attending addendum: Seen and examined, care coordinated with Charisse Moffett PA-C, please see further detail in her note above. Pt is a 54-year-old male with multilevel DJD of lumbar spine, who underwent spinal decompression surgery POD#3. Currently sitting up in bed, in no acute distress, however continues to report back pain. Says his legs feel much better, denies any numbness in LE b/l. Lungs are clear to auscultation, no wheezing or rhonchi noted. Heart sounds regular. Abdomen, soft, nondistended.+ bowel sounds. LE w/o any significant edema, moves extremities spontaneously and w/o difficulty. Hgb stable from yesterday. Sodium level stable (poss. chronic Na 133 in 2018). No BM yet. Chlorthalidone held. BP improved. Continue PT/OT and pain management as per orthopedic service. Abhishek Cleveland MD Subjective Pt seen and examined. Sitting up on edge of bed. C/O continued back pain aggravated with movement and limited relief with narcotic pain medications. Has been able to get up and ambulate to restroom with walker. Reports bilateral legs with improvement prior to surgery and are currently without pain, weakness, or paresthesias. Urinating without difficulty, No dysuria or hematuria. Passing flatus, no BM yet. Denies fever/chills, diaphoresis, N/V, ARREGUIN, dizziness, syncope, vision changes, neck pain, CP, SOB, orthopnea, palpitations, cough, rhinorrhea, abdominal pain, extremity edema, rashes. Review of Systems Review of Systems: All systems reviewed & are unremarkable except as noted in HPI & below Physical Exam Physical Exam: General: no acute distress, obese Head: normocephalic, atraumatic Eyes: conjunctiva non-injected, anicteric ENT: normal inspection external ears, nose, mucous membranes moist Neck: supple, trachea midline Lungs: clear, no respiratory distress, no wheezing/rhonchi/rales CV: RRR, no murmur, no pretibial edema Abd: normal BS x 4 quads, soft, non-tender Back: +LEOBARDO drain in place with serosanguineous drainage; dressing in place is dry Ext: no cyanosis, no calf tenderness; bilateral pedal pushes and pulls intact, distal pulses intact, extension and flexion at bilateral knees intact, sensation to light touch intact Neuro: A&O x 3, no focal deficits noted, normal affect Skin: warm, dry Results & Data Vital Signs (Past 12 Hours) Vital Signs Temp Pulse Resp BP BP Pulse Ox 12/08/19 07:16 37.1 C 80 16 128/63 93 12/07/19 22:58 36.7 C 68 16 100/63 97 Laboratory Results Short CBC 12/08/19 Range/Units 05:42 WBC 12.05 H (4.8-10.8) K/uL Hgb 10.4 L (14.0-18.0) g/dL Hct 30.9 L (42-52) % Plt Count 283 (130-400) K/uL BMP 12/08/19 05:42 Sodium 132 L Potassium 4.2 Chloride 99 Carbon Dioxide 27 BUN 20 H Creatinine 0.83 Glucose 143 H Calcium 8.9
[2019-12-08] MEDS: DULOXETINE HCL 30 MG CAP PO SCH (09:20)
[2019-12-08] MEDS: ASPIRIN 81 MG ECTAB PO SCH (09:20)
[2019-12-08] MEDS: PANTOprazole 40 MG TAB PO SCH (09:21)
[2019-12-08] MEDS: METOPROLOL TARTRATE 100 MG TAB PO SCH ×2 (09:21→20:52)
[2019-12-08] MEDS: INSULIN GLARGINE SOLOSTAR 100 UNITS/ML 3 ML PEN SC SCH ×2 (09:23→20:53)
[2019-12-08] MEDS: INSULIN ASPART 100 UNITS/ML 3 ML PEN SC SCH ×4 (09:24→20:54)
--- NOTE | 2019-12-08 10:00 | Orthopedic Progress Note ---
Date of Service December 08, 2019 Assessment & Plan (1) Myelopathy concurrent with and due to spinal stenosis of thoracic region: At this time we will maintain the LEOBARDO drain continue physical therapy. I did transition him from oxycodone to oral Dilaudid. We will await input from pain management. Present on Admission?: Yes Subjective Patient still complaining of considerable back pain. He is overall markedly improved regarding his lower extremity pain and weakness. Physical Exam Physical Exam: On exam similar bedside. Is improved strength testing lower extremities. Results & Data Vital Signs (Past 12 Hours) Vital Signs Temp Pulse Resp BP BP Pulse Ox 12/08/19 07:16 37.1 C 80 16 128/63 93 12/07/19 22:58 36.7 C 68 16 100/63 97
[2019-12-08] MEDS: HYDROmorphone HCL 2 MG TAB PO PRN ×3 (12:16→20:58)
[2019-12-08] MEDS: TRAMADOL HCL 50 MG TABLET PO PRN ×3 (13:48→22:26)
--- NOTE | 2019-12-08 14:24 | Pharmacy Report ---
Pharmacy Glycemic Short Note 2 - Date of Service December 08, 2019 - Glycemic Short BSG Results (Last 24 hours): 12/07/19 12/07/19 12/08/19 17:33 20:54 05:42 Glucose 143 H POC Glucose 151 H 227 H 12/08/19 12/08/19 08:21 12:00 Glucose POC Glucose 201 H 169 H ASSESSMENT: 12/08 * Patient is currently receiving an average of 120 units of insulin per day * 80 units of basal insulin * 40 units of prandial/correctional insulin * BSGs ranging 143-227 over the past 24hrs * Risk factors for insulin resistance are constant over the past 24hrs * Now POD # 3 s/p surgery * Postprandial BSGs have been elevated, which is somewhat clouded by late administration of bolus doses; however, regimen is heavily weighted on basal dose so will tighten bolus dosing for now to improve BSGs. 12/06 * Patient is currently receiving an average of 100 units of insulin per day * 90 units of basal insulin * 14 units of prandial/correctional insulin (NPO for most of the day) * BSGs ranging 94-224 over the past 24hrs * Risk factors for insulin resistance are decreasing over the past 24hrs * Steroid dose should wear off today * Now POD # 1 s/p surgery * Anticipating insulin regimen will need decreased for the next 24hrs due to steroid effects wearing off. Basal requirements prior to surgery were between 40-80 units per day. Will adjust basal dose to reflect this. BSG at lunch down to 117 mg/dL so will loosen bolus parameters at this time. 12/05 * Pt taken to OR today. He received 8mg IV DXM perioperatively. Given his endogenous insulin resistance, A1C of 11.1%, I surmise his insulin requirements will increase substantially. PLAN FOR INPATIENT GLYCEMIC CONTROL: * Hold outpatient oral diabetes medications * Basal insulin * Lantus BID per the following scale: * 20 units for BSG < 110 * 40 units for BSG 110 or above * Bolus insulin - tighten CR * NovoLog per scale ACHS or Q6hrs while NPO * Goal Range: Low 100 mg/dL - High 140 mg/dL * Correction Factor: 15 mg/dL/unit * Nutritional / Prandial insulin per carb ratio of 1 unit per 4 grams CHO consumed Discharge Recommendations: * A1c = 11.1% on 12/02/19. This is down from 13.8% on 10/07/19. * Patient follows closely w/ [facility] and is planning to start Ozempic. * Since patient's A1c has improved significantly and will be starting a GLP-1 agonist, recommend to resume outpatient regimen on discharge and f/u with [facility] clinic.
[2019-12-08] MEDS: DOCUSATE SODIUM/SENNA 50/8.6MG TAB PO SCH (20:52)
[2019-12-08] MEDS: ATORVASTATIN 40 MG TAB PO SCH (20:52)
[2019-12-08] MEDS: BuPROPion XL 150 MG TABCR PO SCH (20:52)
[2019-12-08] MEDS: LORazepam 0.5 MG TAB PO PRN (23:28)
[2019-12-08] MEDS: ACETAMINOPHEN 500 MG TAB PO PRN (23:28)
[2019-12-09] MEDS: POLYETHYLENE (MIRALAX) 17 GM PACK PO SCH ×4 (00:08→20:42)
[2019-12-09] MEDS: HYDROmorphone HCL 2 MG TAB PO PRN ×2 (01:03→05:02)
[2019-12-09] MEDS: LEVOTHYROXINE SODIUM 137 MCG TABLET PO SCH (05:02)
[2019-12-09 05:31] LABS: Hematocrit (blood only) 29.4 % (42-52); Hemoglobin 9.6 g/dL (14.0-18.0); Mean Corpuscular Hemoglobin 28.7 pg (25-34); Mean Corpuscular Hgb Conc 32.7 g/dL (32-36); Mean Platelet Volume 8.8 fL (7.4-10.4); Platelet Count 289 K/uL (130-400); RDW Coefficient of Variation 13.9 % (11.5-14.5); RDW Standard Deviation 45.3 fL (36.4-46.3); Red Blood Count 3.34 M/uL (4.7-6.1); White Blood Count 10.62 K/uL (4.8-10.8)
[2019-12-09 06:00] LABS: BUN Creatinine Ratio 22.1 (10-20); Calcium 8.8 mg/dl (8.5-10.1); Creatinine Clr Calc Pharmacy 188.8 ml/min; Est GFR (African American) 129.5; Est GFR (Non-African American) 111.7
[2019-12-09] MEDS: TRAMADOL HCL 50 MG TABLET PO PRN (07:28)
[2019-12-09] MEDS: DULOXETINE HCL 30 MG CAP PO SCH (08:02)
[2019-12-09] MEDS: PANTOprazole 40 MG TAB PO SCH (08:03)
[2019-12-09] MEDS: ASPIRIN 81 MG ECTAB PO SCH (08:03)
[2019-12-09] MEDS: METOPROLOL TARTRATE 100 MG TAB PO SCH ×2 (08:03→20:41)
[2019-12-09] MEDS: INSULIN GLARGINE SOLOSTAR 100 UNITS/ML 3 ML PEN SC SCH ×2 (08:29→20:58)
--- NOTE | 2019-12-09 08:30 | Pain Management Consultation ---
Date of Consultation December 09, 2019 Assessment & Plan (1) Status post lumbar surgery: Present on Admission?: No (2) Thoracolumbar back pain: 1. Will initiate Toradol 30 mg IV every 6 scheduled over the next few days 2. Will initiate hydrocodone 7.5/325 every 6 as needed breakthrough pain 3. The patient will reserve oral versus IV hydromorphone for breakthrough pain not well controlled with hydrocodone. Patient should consider use of hydr omorphone prior to any planned out of bed activity. 4. Ongoing postoperative care per orthopedic spine surgery team 5. Out of bed activities as able per PT/OT Present on Admission?: Yes History of Present Illness Reason for Consultation: Postoperative axial back pain status post T10-L4 fusion Requesting Physician: Chris Silva DO Attending Physician: Chris Silva DO History of Present Illness Mr. Russell is a 54-year-old obese white male who was admitted for elective thoracolumbar spine surgery due to myelopathy with spinal stenosis who ultimately underwent a thoracolumbar decompression extending from T10-L4. The procedure was completed on 12/05/2019. The patient is currently POD #4 reporting difficulties with axial thoracolumbar back pain. He reports a significant increase in his pain and difficulty tolerating movements. He has had minimal out of bed activity over the past 24 hours due to his pain and discomfort. He feels that his current medications are minimally effective at improving his pain control. Patient denies lower extremity pain or weakness which has been improved since the time of his surgery. He reports the pain can radiate towards the flank but he denies radicular or radiating pain to the abdominal region. He reports minimal benefit from use of tramadol or oral Dilaudid over the past 24 hours. He reports IV Dilaudid is effective but lasting only approximately 2-3 hours at diminishing his pain. Patient denies fevers, chills or night sweats. Patient reports history of chronic utilization of Vicodin in the outpatient setting which he has found to be most effective at controlling his pain. He had not been utilizing opiates in the few months prior to his recent surgery. He denies bowel or bladder incontinence or saddle anesthesias. Patient has no new neurologic or further constitutional complaints. Plan of care discussed with Dr. Kitty Lowry. Pain Assessment Full Body Front + Back: 1. Thoracic or lumbar axial pain Pain scale - at its best (0-10): 7 Pain scale - at its worst (0-10): 10 Allergies Allergy/AdvReac Type Severity Reaction Status Date / Time codeine Allergy Intermediate CONFUSION Verified 12/05/19 11:06 empagliflozin Allergy Intermediate Headache Verified 12/05/19 11:06 [From Jardiance] meperidine [From Demerol] AdvReac Intermediate Nausea Verified 12/05/19 11:06 Home Medications Home Medications Medication Instructions Recorded Confirmed Type B-complex with vitamin C 1 tab PO DAILY #90 tab 07/05/19 12/02/19 Rx bupropion HCl 150 mg 24 hr tablet, 150 mg PO QPM #90 tab 07/05/19 12/02/19 Rx extended release chlorthalidone 25 mg tablet 25 mg PO DAILY #90 tab 07/05/19 12/02/19 Rx metformin 1,000 mg tablet See Rx Instructions PO DAILY #225 07/05/19 12/02/19 Rx tab pantoprazole 40 mg tablet,delayed 40 mg PO DAILY #90 tab 07/05/19 12/02/19 Rx release aspirin 162 mg PO DAILY 12/02/19 12/02/19 History atorvastatin 40 mg PO HS 12/02/19 12/02/19 History baclofen 10 mg PO BID 12/02/19 12/02/19 History duloxetine 30 mg PO DAILY 12/02/19 12/02/19 History insulin aspart U-100 [Novolog 40 unit SUBCUT TIDM 12/02/19 12/02/19 History Flexpen U-100 Insulin] insulin degludec 80 units SUBCUT BID 12/02/19 12/02/19 History levothyroxine 137 mcg PO DAILY 12/02/19 12/02/19 History lisinopril 2.5 mg PO DAILY 12/02/19 12/02/19 History meloxicam 15 mg PO DAILY 12/02/19 12/02/19 History metoprolol tartrate 100 mg PO BID 12/02/19 12/02/19 History semaglutide [Ozempic] 0.25 mg SUBCUT WK 12/02/19 12/02/19 History Pain History Pain Intensity Pain scale - at its best (0-10): 7 Pain scale - at its worst (0-10): 10 Patient History Medical History Adenomatous polyp of colon (Chronic) Benign essential hypertension (Chronic) Depression (Chronic) Diabetes mellitus type 2, uncontrolled (Chronic) Dyslipidemia GERD (gastroesophageal reflux disease) HTN (hypertension) Hypercholesterolemia (Chronic) Hypothyroidism (Chronic) Lumbosacral radiculopathy at L3 (Chronic) Morbid obesity (Chronic) Obstructive sleep apnea (Chronic) Opiate dependence (Chronic) Paroxysmal atrial fibrillation (Chronic) Tobacco use Surgical History History of colonoscopy 03/2018 - Dr Villela. 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 Speech and thought process appropriate. Mood and affect appropriate. Cognition intact. Head: Normocephalic and atraumatic. Abdomen: Soft and nondistended. No organomegaly. Bowel sounds active. Back/spine: Complete loss of lumbar lordosis. Patient has a large bandage in place from his mid thoracic through the lumbosacral region which was not removed for visual inspection. He has generalized tenderness to palpation in the paravertebral region bilaterally and equal extending from the mid-lower thoracic through the lumbosacral region upon light palpation. Any movement contributed to increased pain complaints. Lower extremities: SLR negative bilaterally. Strength testing 5/5 and equal with EHL testing, dorsi and plantar flexion. Sensation intact without deficits. Neurologic: Cranial nerves grossly intact. Ambulatory function not witnessed. Results Diagnostic Review Radiology: reports reviewed Radiology Findings: [facility], [place] [phone] Fluoroscopy Report Patient: Evie RUSSELL Date: 12/02/19 MR#: [id number]: [facility] Acct ID:[id number]: [facility] 1965[facility] Zip: [place] [id number] Age: 54Location: 3W Sex: M Room/Bed: [facility] Att Phy: Chris Silva D.O.Diagnosis: LUMBER SPINE PAIN,SEVERE LUMBER SPINE STENOSIS Pinky Phy: Jade Tong DOService Date: 12/05/19 Fam Phy:Interpreting Phy: Tristan Ferrer MD Admit Phy: Chris Silva D.O. Ordering Phy: Chris Silva D.O. cc: ~ [place] lumbar spine 2-3V CLINICAL HISTORY: T10-L4 DECOMPRESSION AND FUSIONpain COMPARISON STUDY: None FLUOROSCOPY TIME: 34 seconds NUMBER OF FLUOROSCOPIC IMAGES: 6 FINDINGS: Image intensifier was utilized for intraoperative laminectomy and fusion of the low thoracic and lumbar spine. IMPRESSION: Image intensifier usage for intraoperative assistance for a T10-L4 decompression and fusion ACT 112: Negative or not required by law. The above report was generated using voice recognition software. It may contain grammatical, syntax or spelling errors. Electronically signed by: Tristan Ferrer M.D. 12/05/2019 4:58 PM Dictated: 12/05/191656 Transcribed: 12/05/191656
[2019-12-09] MEDS: INSULIN ASPART 100 UNITS/ML 3 ML PEN SC SCH ×4 (08:31→20:57)
--- NOTE | 2019-12-09 08:49 | Hospitalist Progress Note ---
Date of Service December 09, 2019 Assessment & Plan (1) Status post lumbar surgery: (2) Lumbar radiculopathy: Pt admitted on 12/02/19 for progressive back pain with worsening over the past month with weakness and numbness of right leg. H/O Lumbar surgery in 2008. Venous Doppler BLE: No evidence of lower extremity DVT. Post op day# 4 S/P revisionL4-S1, decompression and fusion T10-L4 by Dr Silva EBL#1000ml Total LEOBARDO drain output #249ml in past 24 hours Post op pt with continued back pain -Pain management consulted for assistance with post-op pain -Hgb stable. Acute blood loss anemia -Wound management per ortho -PT/OT as appropriate -DVT prophylaxis per ortho -Incentive spirometry (3) Diabetes mellitus type 2, uncontrolled: A1c: 11.1 on 12/02/19 Following with outpatient [facility] glycemic pharmacy and insulin adjustments, Ozempic prescribed but has not been started yet -Holding metformin, Ozempic -Monitor BSG's, diabetic diet -Pt had received IV steroids perioperatively -Basal bolus insulin and sliding scale -Glycemic pharmacy on board, appreciate assistance (4) Hyponatremia: Na: 135. -Monitor BMP (5) HTN (hypertension): BPs on low side 12/06/19 & 12/07/19 with SBPs' in 90's. Asymptomatic -Chlorthalidone held 12/07/19 and 12/08/19 -BPs stable -Continue lisinopril, metoprolol -Resume chlorthalidone tomorrow (6) Dyslipidemia: -Continue atorvastatin (7) Hypothyroidism: TSH: 4.3 on 10/07/2019 -Continue levothyroxine (8) Depression: -Continue bupropion, duloxetine (9) GERD (gastroesophageal reflux disease): -Continue PPI (10) Morbid obesity: BMI: 41.8 Lifestyle modifications recommended (11) Tobacco use: -Pt expresses desire to quit smoking. Encouraged pt smoking cessation -Pt denies nicotine patch at this time DVT Prophylaxis -SCDs per ortho Disposition per primary service Follows with Dr Tong for routine care Patient seen in collaboration with Dr. Cleveland. Please see addendum. Supervising Physician Co-Signing Physician Notes Attending addendum: Seen and examined, care coordinated with Charisse Moffett PA-C, please see further detail in her note above. Pt is a 54-year-old male with multilevel DJD of lumbar spine, who underwent spinal decompression surgery POD#4. Currently sitting up in bed, in no acute distress, back pain is now much better controlled. Pt is ambulatory. His legs feel much better, denies any numbness in LE b/l. Lungs are clear to auscultation, no wheezing or rhonchi noted. Heart sounds regular. Abdomen, soft, nondistended.+ bowel sounds. LE w/o any significant edema, moves extremities spontaneously and w/o difficulty. No BM yet, discussed suppository, pt agreeable.Post op/acute blood loss anemia Hgb 9.6. BP improved. chlorthalidone can be restarted. Continue PT/OT and pain management as per orthopedic service. Abhishek Cleveland MD Subjective Pt seen and examined. Sitting up in bed. POD# 4 s/p S/P revisionL4-S1, decompression and fusion T10-L4 by Dr Silva. C/O continued back pain aggravated with movement. Pain management saw pt today. Still able to get up and ambulate to restroom with walker. Bilateral legs continued without pain, weakness, or paresthesias. Passing flatus, no BM yet. Denies fever/chills, diaphoresis, N/V, ARREGUIN, dizziness, syncope, vision changes, neck pain, CP, SOB, orthopnea, palpitations, cough, rhinorrhea, abdominal pain, extremity edema, rashes, urinary symptoms. Review of Systems Review of Systems: All systems reviewed & are unremarkable except as noted in HPI & below Physical Exam Physical Exam: General: no acute distress, obese Head: normocephalic, atraumatic Eyes: conjunctiva non-injected, anicteric ENT: normal inspection external ears, nose, mucous membranes moist Neck: supple, trachea midline Lungs: clear, no respiratory distress, no wheezing/rhonchi/rales CV: RRR, no murmur, no pretibial edema Abd: normal BS x 4 quads, soft, non-tender Back: +LEOBARDO drain in place with serosanguineous drainage; dressing in place is dry Ext: no cyanosis, no calf tenderness; ROM lower extremities intact, distal pulses intact, sensation to light touch intact Neuro: A&O x 3, no focal deficits noted, normal affect Skin: warm, dry Results & Data Vital Signs (Past 12 Hours) Vital Signs Temp Pulse Pulse Resp BP Pulse Ox 12/09/19 08:22 37.3 C 70 14 130/70 99 12/09/19 06:40 37.0 C 72 18 133/77 95 12/08/19 23:03 36.9 C 75 18 122/78 92 Laboratory Results Short CBC 12/09/19 Range/Units 05:16 WBC 10.62 (4.8-10.8) K/uL Hgb 9.6 L (14.0-18.0) g/dL Hct 29.4 L (42-52) % Plt Count 289 (130-400) K/uL BMP 12/09/19 05:16 Sodium 135 L Potassium 4.0 Chloride 103 Carbon Dioxide 29 BUN 14 Creatinine 0.63 Glucose 136 H Calcium 8.8
[2019-12-09] MEDS: KETOROLAC 30 MG/ML VIAL IV SCH ×3 (08:57→20:44)
[2019-12-09] MEDS: HYDROCODONE/ACETAMINOPHEN 7.5/325MG TAB PO PRN ×3 (10:26→23:55)
--- NOTE | 2019-12-09 13:45 | Orthopedic Progress Note ---
Date of Service December 09, 2019 Assessment & Plan (1) Myelopathy concurrent with and due to spinal stenosis of thoracic region: This time we will continue physical therapy monitor his LEOBARDO output anticipate discharge home Thursday. Present on Admission?: Yes Subjective Back pain much more controlled today. Leg symptoms steadily improving. Physical Exam Physical Exam: Patient is ambulating halls has good strength testing. Results & Data Vital Signs (Past 12 Hours) Vital Signs Temp Pulse Pulse Resp BP Pulse Ox 12/09/19 08:22 37.3 C 70 14 130/70 99 12/09/19 06:40 37.0 C 72 18 133/77 95
[2019-12-09] MEDS: ATORVASTATIN 40 MG TAB PO SCH (20:41)
[2019-12-09] MEDS: BuPROPion XL 150 MG TABCR PO SCH (20:41)
[2019-12-09] MEDS: DOCUSATE SODIUM/SENNA 50/8.6MG TAB PO SCH (20:41)
[2019-12-10] MEDS: KETOROLAC 30 MG/ML VIAL IV SCH ×4 (03:00→21:10)
[2019-12-10] MEDS: HYDROCODONE/ACETAMINOPHEN 7.5/325MG TAB PO PRN ×3 (06:00→18:58)
[2019-12-10] MEDS: LEVOTHYROXINE SODIUM 137 MCG TABLET PO SCH (06:02)
[2019-12-10] MEDS: POLYETHYLENE (MIRALAX) 17 GM PACK PO SCH ×5 (06:02→18:04)
--- NOTE | 2019-12-10 08:51 | Orthopedic Progress Note ---
Date of Service December 10, 2019 Assessment & Plan (1) Myelopathy concurrent with and due to spinal stenosis of thoracic region: This time we will continue physical therapy monitor his LEOBARDO output anticipate discharge home Thursday. Subjective Back pain much more controlled today. Leg symptoms steadily improving. Physical Exam Physical Exam: Patient is alert and oriented. His abdomen soft nontender calves are supple nontender drain is intact and holding suction dressing is clean dry and intact. Results & Data Vital Signs (Past 12 Hours) Vital Signs Temp Pulse Resp BP BP Pulse Ox 12/10/19 07:42 36.8 C 68 19 177/78 H 98 12/09/19 23:22 36.7 C 82 16 156/78 H 98 12/09/19 23:21 36.7 C 82 16 98
[2019-12-10] MEDS: DULOXETINE HCL 30 MG CAP PO SCH (09:06)
[2019-12-10] MEDS: ASPIRIN 81 MG ECTAB PO SCH (09:06)
[2019-12-10] MEDS: CHLORTHALIDONE 25 MG TAB PO SCH (09:07)
[2019-12-10] MEDS: PANTOprazole 40 MG TAB PO SCH (09:07)
[2019-12-10] MEDS: METOPROLOL TARTRATE 100 MG TAB PO SCH ×2 (09:07→21:10)
[2019-12-10] MEDS: INSULIN ASPART 100 UNITS/ML 3 ML PEN SC SCH ×4 (09:11→21:12)
[2019-12-10] MEDS: INSULIN GLARGINE SOLOSTAR 100 UNITS/ML 3 ML PEN SC SCH ×2 (09:30→21:08)
[2019-12-10] MEDS: ACETAMINOPHEN 500 MG TAB PO PRN (16:01)
--- NOTE | 2019-12-10 18:24 | Hospitalist Progress Note ---
Date of Service December 10, 2019 Assessment & Plan (1) Status post lumbar surgery: (2) Lumbar radiculopathy: Pt admitted on 12/02/19 for progressive back pain with worsening over the past month with weakness and numbness of right leg. H/O Lumbar surgery in 2008. Venous Doppler BLE: No evidence of lower extremity DVT. Post op day# 5 S/P revisionL4-S1, decompression and fusion T10-L4 by Dr Silva Post op pt with continued back pain, improved yesterday, today says pain is worse controlled -Pain management consulted for assistance with post-op pain -Hgb stable. Acute blood loss anemia -Wound management per ortho -PT/OT as appropriate -DVT prophylaxis per ortho -Incentive spirometry (3) Diabetes mellitus type 2, uncontrolled: A1c: 11.1 on 12/02/19 Following with outpatient [facility] glycemic pharmacy and insulin adjustments, Ozempic prescribed but has not been started yet -Holding metformin, Ozempic -Monitor BSG's, diabetic diet -Pt had received IV steroids perioperatively -Basal bolus insulin and sliding scale -Glycemic pharmacy on board, appreciate assistance (4) Hyponatremia: Na: 135. -Monitor BMP (5) HTN (hypertension): BPs on low side 12/06/19 & 12/07/19 with SBPs' in 90's. Asymptomatic -Chlorthalidone held 12/07/19 and 12/08/19 -BPs stable -Continue lisinopril, metoprolol -Resumed chlorthalidone (6) Dyslipidemia: -Continue atorvastatin (7) Hypothyroidism: TSH: 4.3 on 10/07/2019 -Continue levothyroxine (8) Depression: -Continue bupropion, duloxetine (9) GERD (gastroesophageal reflux disease): -Continue PPI (10) Morbid obesity: BMI: 41.8 Lifestyle modifications recommended (11) Tobacco use: -Pt expresses desire to quit smoking. Encouraged pt smoking cessation -Pt denies nicotine patch at this time DVT Prophylaxis -SCDs per ortho Disposition per primary service Follows with Dr Tong for routine care Subjective Patient sitting up in the bed, in no acute distress. Says that pain is somewhat worse controlled than previously. He is ambulating. Denies any fevers, chills, chest pain, shortness of breath, abdominal pain, nausea or vomiting. Patient had several bowel movements. LEOBARDO drain still placed. Review of Systems Review of Systems: All systems reviewed & are unremarkable except as noted in HPI & below Constitutional: no fever and no chills Respiratory: no cough and no dyspnea Cardiovascular: no chest pain, no palpitations and no edema Gastrointestinal: no abdominal pain, no nausea and no vomiting Physical Exam Physical Exam: General: Middle-aged obese male, sitting up in bed, in no acute distress Head: normocephalic, atraumatic Eyes: EOMI, PERRL, conjunctiva non-injected, anicteric ENT: normal inspection external ears, nose, mucous membranes moist Neck: supple, trachea midline Lungs: clear, no respiratory distress, no wheezing/rhonchi/rales CV: RRR, no murmur, no pretibial edema Abd: normal BS x 4 quads, soft, non-tender to palp., obese Back: +LEOBARDO drain in place with serosanguineous drainage; dressings in place clean and dry Ext: no cyanosis, no calf tenderness; ROM lower extremities intact, distal pulses intact, sensation to light touch intact Neuro: A&O x 3, no focal deficits noted, normal affect Skin: warm, dry Results & Data Vital Signs (Past 12 Hours) Vital Signs Temp Pulse Resp BP Pulse Ox 12/10/19 15:35 37.4 C 69 16 146/75 H 100 12/10/19 07:42 36.8 C 68 19 177/78 H 98
[2019-12-10] MEDS: LORazepam 0.5 MG TAB PO PRN (21:08)
[2019-12-10] MEDS: BuPROPion XL 150 MG TABCR PO SCH (21:10)
[2019-12-10] MEDS: DOCUSATE SODIUM/SENNA 50/8.6MG TAB PO SCH (21:11)
[2019-12-10] MEDS: ATORVASTATIN 40 MG TAB PO SCH (21:11)
[2019-12-10] MEDS: HYDROmorphone HCL 2 MG TAB PO PRN (22:37)
[2019-12-11] MEDS: ACETAMINOPHEN 500 MG TAB PO PRN (00:02)
[2019-12-11] MEDS: POLYETHYLENE (MIRALAX) 17 GM PACK PO SCH ×4 (00:02→18:51)
[2019-12-11] MEDS: HYDROCODONE/ACETAMINOPHEN 7.5/325MG TAB PO PRN ×2 (01:31→08:41)
[2019-12-11] MEDS: KETOROLAC 30 MG/ML VIAL IV SCH ×4 (03:01→21:50)
[2019-12-11] MEDS: LEVOTHYROXINE SODIUM 137 MCG TABLET PO SCH (05:14)
[2019-12-11 06:21] LABS: Hematocrit (blood only) 29.3 % (42-52); Hemoglobin 9.6 g/dL (14.0-18.0); Mean Corpuscular Hemoglobin 28.5 pg (25-34); Mean Corpuscular Hgb Conc 32.8 g/dL (32-36); Mean Corpuscular Volume 86.9 fL (80-100); Mean Platelet Volume 8.7 fL (7.4-10.4); Platelet Count 363 K/uL (130-400); RDW Coefficient of Variation 13.6 % (11.5-14.5); RDW Standard Deviation 43.8 fL (36.4-46.3); Red Blood Count 3.37 M/uL (4.7-6.1)
[2019-12-11] MEDS: HYDROmorphone HCL 2 MG TAB PO PRN ×3 (06:26→17:17)
[2019-12-11 06:50] LABS: BUN Creatinine Ratio 30.1 (10-20); Calcium 8.9 mg/dl (8.5-10.1); Creatinine Clr Calc Pharmacy 132.2 ml/min; Est GFR (African American) 111.8; Est GFR (Non-African American) 96.5; Potassium 3.9 mmol/L (3.5-5.1)
--- NOTE | 2019-12-11 09:04 | Orthopedic Progress Note ---
Date of Service December 11, 2019 Assessment & Plan (1) Myelopathy concurrent with and due to spinal stenosis of thoracic region: Patient continues to experience discomfort. We will change his dressing today and hopefully that will give him less discomfort in the back itself. We will maintain the drain however. I encouraged him continue with ambulation gait training with physical therapy. He needs to continue to consume fluids. May consider adding IV Tylenol to his current pain regimen to mitigate some of the discomfort. Her hopes to be we will get him home sometime early next week. Subjective Patient is seen bedside in room 359. He states he had a difficult night. His pain is not controlled he had an admixture both lower back pain is well as leg pain. He has gotten up and walk several times. He is tolerating p.o. He denies any other numbness, tingling, or paresthesias. Physical Exam Physical Exam: On exam he is alert and oriented. His dressing is clean dry and intact. His LEOBARDO drain is placed out 5 cc this shift 40 in the last. Is sitting on the side of the bed and appears uncomfortable. His calves are supple nontender his abdomen soft nontender. Results & Data Vital Signs (Past 12 Hours) Vital Signs Temp Pulse Resp BP BP Pulse Ox 12/11/19 07:26 36.6 C 71 16 168/80 H 100 12/10/19 22:58 36.7 C 66 16 147/79 H 98 12/10/19 21:06 74 173/79 H
[2019-12-11] MEDS: DULOXETINE HCL 30 MG CAP PO SCH (09:18)
[2019-12-11] MEDS: METOPROLOL TARTRATE 100 MG TAB PO SCH ×2 (09:19→21:50)
[2019-12-11] MEDS: CHLORTHALIDONE 25 MG TAB PO SCH (09:19)
[2019-12-11] MEDS: ASPIRIN 81 MG ECTAB PO SCH (09:19)
[2019-12-11] MEDS: PANTOprazole 40 MG TAB PO SCH (09:20)
[2019-12-11] MEDS: INSULIN GLARGINE SOLOSTAR 100 UNITS/ML 3 ML PEN SC SCH ×2 (09:22→21:39)
[2019-12-11] MEDS: INSULIN ASPART 100 UNITS/ML 3 ML PEN SC SCH ×4 (09:46→21:41)
[2019-12-11] MEDS ORDERED: ACETAMINOPHEN 1,000 MG/100 ML VIAL IV PRN (10:02)
--- NOTE | 2019-12-11 12:39 | Hospitalist Progress Note ---
Date of Service December 11, 2019 Assessment & Plan (1) Status post lumbar surgery: (2) Lumbar radiculopathy: Pt admitted on 12/02/19 for progressive back pain with worsening over the past month with weakness and numbness of right leg. H/O Lumbar surgery in 2008. Venous Doppler BLE: No evidence of lower extremity DVT. Post op day# 6 S/P revision L4-S1, decompression and fusion T10-L4 by Dr Silva Post op pt with continued back pain -Pain management consulted for assistance with post-op pain -Hgb stable. Acute blood loss anemia -Wound management per ortho -PT/OT as appropriate -DVT prophylaxis per ortho -Incentive spirometry (3) Diabetes mellitus type 2, uncontrolled: A1c: 11.1 on 12/02/19 Following with outpatient [facility] glycemic pharmacy and insulin adjustments, Ozempic prescribed but has not been started yet -Holding metformin, Ozempic -Monitor BSG's, diabetic diet -Pt had received IV steroids perioperatively -Basal bolus insulin and sliding scale -Glycemic pharmacy on board, appreciate assistance (4) Hyponatremia: Na: 135. -Monitor BMP (5) HTN (hypertension): BPs on low side 12/06/19 & 12/07/19 with SBPs' in 90's. Asymptomatic -Chlorthalidone held 12/07/19 and 12/08/19 -BPs stable -Continue lisinopril, metoprolol -Resumed chlorthalidone (6) Dyslipidemia: -Continue atorvastatin (7) Hypothyroidism: TSH: 4.3 on 10/07/2019 -Continue levothyroxine (8) Depression: -Continue bupropion, duloxetine (9) GERD (gastroesophageal reflux disease): -Continue PPI (10) Morbid obesity: BMI: 41.8 Lifestyle modifications recommended (11) Tobacco use: -Pt expresses desire to quit smoking. Encouraged pt smoking cessation -Pt denies nicotine patch at this time DVT Prophylaxis -SCDs per ortho Disposition per primary service Follows with Dr Tong for routine care Subjective Patient sitting up in the bed, in no acute distress. Says that pain is worse controlled today. He is ambulating. Denies any fevers, chills, chest pain, shortness of breath, abdominal pain, nausea or vomiting. Patient had several bowel movements. LEOBARDO drain still placed. Review of Systems Review of Systems: All systems reviewed & are unremarkable except as noted in HPI & below Constitutional: no fever and no chills Respiratory: no cough and no dyspnea Cardiovascular: no chest pain, no palpitations and no edema Gastrointestinal: no abdominal pain, no nausea and no vomiting Physical Exam Physical Exam: General: Middle-aged obese male, sitting up in bed, in no acute distress Head: normocephalic, atraumatic Eyes: EOMI, PERRL, conjunctiva non-injected, anicteric ENT: normal inspection external ears, nose, mucous membranes moist Neck: supple, trachea midline Lungs: clear, no respiratory distress, no wheezing/rhonchi/rales CV: RRR, no murmur, no pretibial edema Abd: normal BS x 4 quads, soft, non-tender to palp., obese Back: +LEOBARDO drain in place with serosanguineous drainage; dressings in place clean and dry Ext: no cyanosis, no calf tenderness; ROM lower extremities intact, distal pulses intact, sensation to light touch intact Neuro: A&O x 3, no focal deficits noted, normal affect Skin: warm, dry Results & Data Vital Signs (Past 12 Hours) Vital Signs Temp Pulse Resp BP Pulse Ox 12/11/19 07:26 36.6 C 71 16 168/80 H 100
--- NOTE | 2019-12-11 15:02 | Pharmacy Report ---
Pharmacy Glycemic Short Note 2 - Date of Service December 11, 2019 - Glycemic Short BSG Results (Last 24 hours): 12/10/19 12/10/19 12/11/19 17:24 20:34 05:46 Glucose 75 POC Glucose 134 H 162 H 12/11/19 12/11/19 08:22 11:59 Glucose POC Glucose 125 H 201 H ASSESSMENT: 12/11 * Patient received total of 101 units of insulin yesterday, BSGs well controlled * Fasting on lower end of range this morning at 75 mg/dL - however POC up to 125 mg/dL / will scale back on Lantus. Insulin regimen heavily basal weighted. Ideally would like more of a 50/50 split with basal/novolog * Lunch BSG trending up however AM insulin given late therefore actual level likely lower - will monitor PLAN FOR INPATIENT GLYCEMIC CONTROL: * Hold outpatient oral diabetes medications * Basal insulin * Lantus 25 this am then scale for tonight * Lantus HS : if bsg < 150 give 30 units and >150 give 35 units * Bolus insulin - tighten CR * NovoLog per scale ACHS or Q6hrs while NPO * Goal Range: Low 100 mg/dL - High 140 mg/dL * Correction Factor: 15 mg/dL/unit * Nutritional / Prandial insulin per carb ratio of 1 unit per 4 grams CHO consumed
[2019-12-11] MEDS: LORazepam 0.5 MG TAB PO PRN (18:09)
[2019-12-11] MEDS: ATORVASTATIN 40 MG TAB PO SCH (21:48)
[2019-12-11] MEDS: DOCUSATE SODIUM/SENNA 50/8.6MG TAB PO SCH (21:49)
[2019-12-11] MEDS: BuPROPion XL 150 MG TABCR PO SCH (21:50)
[2019-12-12] MEDS: HYDROCODONE/ACETAMINOPHEN 7.5/325MG TAB PO PRN ×3 (00:02→12:33)
[2019-12-12] MEDS: POLYETHYLENE (MIRALAX) 17 GM PACK PO SCH ×2 (00:02→05:25)
[2019-12-12] MEDS: HYDROmorphone HCL 2 MG TAB PO PRN ×3 (01:10→09:54)
[2019-12-12] MEDS: LORazepam 0.5 MG TAB PO PRN (03:02)
[2019-12-12] MEDS: KETOROLAC 30 MG/ML VIAL IV SCH ×2 (03:02→08:02)
[2019-12-12] MEDS: LEVOTHYROXINE SODIUM 137 MCG TABLET PO SCH (05:26)
[2019-12-12] MEDS: DULOXETINE HCL 30 MG CAP PO SCH (08:01)
[2019-12-12] MEDS: METOPROLOL TARTRATE 100 MG TAB PO SCH (08:01)
[2019-12-12] MEDS: CHLORTHALIDONE 25 MG TAB PO SCH (08:01)
[2019-12-12] MEDS: ASPIRIN 81 MG ECTAB PO SCH (08:01)
[2019-12-12] MEDS: INSULIN GLARGINE SOLOSTAR 100 UNITS/ML 3 ML PEN SC SCH (08:07)
[2019-12-12] MEDS: INSULIN ASPART 100 UNITS/ML 3 ML PEN SC SCH ×2 (08:09→12:36)
--- NOTE | 2019-12-12 09:57 | XRay Report ---
XR lumbar spine 2-3V CLINICAL HISTORY: Postoperative evaluation. COMPARISON STUDY: Lumbar spine fluoroscopic images December 05, 2019 and lumbar spine radiographs May. FINDINGS: A portion of the right pedicle screw at the S1 level is noted. L3-L4, L4-L5 and L5-S1 disce ctomies with interbody spacer placement are noted. There is a posterior decompression. There are bila teral pedicle screws at the T10-L4 levels with interconnecting rods. Hardware is intact. There are no unexpected radiopaque foreign body. Surgical drain is in place. IMPRESSION: Fluoroscopic images demonstrating at T10-L4 decompression and fusion. ACT 112: Negative or not required by law. Electronically signed by: Kamron Duarte M.D. 12/12/2019 9:55 AM
[2019-12-12] MEDS: PANTOprazole 40 MG TAB PO SCH (12:40)
--- NOTE | 2019-12-12 13:26 | Pharmacy Report ---
Pharmacy Glycemic Short Note 2 - Date of Service December 12, 2019 - Glycemic Short BSG Results (Last 24 hours): 12/11/19 12/11/19 12/12/19 17:11 21:05 07:57 POC Glucose 107 H 145 H 110 H ASSESSMENT: 12/12 * Fasting this morning 110 mg/dL with 55 units of lantus yesterday- will continue current scale * Prandial BSGs within goal with exception of elevated lunch BSG yesterday, improved today 111- will continue current novolog parameters * Anticipate discharge today 12/11 * Patient received total of 101 units of insulin yesterday, BSGs well controlled * Fasting on lower end of range this morning at 75 mg/dL - however POC up to 125 mg/dL / will scale back on Lantus. Insulin regimen heavily basal weighted. Ideally would like more of a 50/50 split with basal/novolog * Lunch BSG trending up however AM insulin given late therefore actual level likely lower - will monitor PLAN FOR INPATIENT GLYCEMIC CONTROL: * Hold outpatient oral diabetes medications * Basal insulin * Lantus 25 this am then scale for tonight * Lantus HS : if bsg < 150 give 30 units and >150 give 35 units * Bolus insulin - tighten CR * NovoLog per scale ACHS or Q6hrs while NPO * Goal Range: Low 100 mg/dL - High 140 mg/dL * Correction Factor: 15 mg/dL/unit * Nutritional / Prandial insulin per carb ratio of 1 unit per 4 grams CHO consumed Discharge Recommendations A1c = 11.1% on 12/02/19. This is down from 13.8% on 10/07/19. * Patient follows closely w/ [facility] and is planning to start Ozempic. * Since patient's A1c has improved significantly and will be starting a GLP-1 agonist, recommend to resume outpatient regimen on discharge and f/u with [facility] if patient was not experiencing significant hypoglycemic events with previous regimen- patient requirements reduced significantly inpatient.
--- NOTE | 2019-12-12 13:50 | Discharge Summary ---
Date of Service December 12, 2019 Principal Diagnosis Thoracolumbar spinal stenosis with myeloradiculopathy Discharge Data Allergies Allergy/AdvReac Type Severity Reaction Status Date / Time codeine Allergy Intermediate CONFUSION Verified 12/05/19 11:06 empagliflozin Allergy Intermediate Headache Verified 12/05/19 11:06 [From Jardiance] meperidine [From Demerol] AdvReac Intermediate Nausea Verified 12/05/19 11:06 Consultations 12/02/19 15:30 Consult Anesthesiology Routine Consult Internal Medicine Routine 12/05/19 19:23 Consult Case Management - Discharge Planning Routine 12/07/19 10:40 Consult Pain Management Routine Procedures Performed Operation Date: 12/05/19 11:45 Actual Procedures p T10-L4 Lumbar Decompression and Fusion(Not Applicable) - Chris Silva DO s L4-S1 Hardware Removal, Spinal Cord Monitoring(Not Applicable) - Chris gusman DO Ordered Studies 12/02/19 15:30 US venous doppler LE BI Routine 12/05/19 12:00 FL fluoroscopy <1hr Routine FL lumbar spine 2-3V Routine Hospital Course (1) Myelopathy concurrent with and due to spinal stenosis of thoracic region: Patient was admitted to the hospital for profound leg weakness and decline in ability to ambulate. After he was cleared medically he underwent a thoracolumbar decompression and fusion. He tolerated this procedure well and progressed appropriately throughout his hospital stay with dramatic improvement into his lower extremity function and ability to ambulate. The drain did decrease appropriately. On the last day of his admission he had good strength testing was ambulating the halls on this and tolerating stairs. Subsequently was discharged home. Discharge orders instructions from the chart for further review. Total Time Total Time Spent Total Time Spent (In Minutes): 40 minutes Discharge Plan Discharge Items Patient Disposition: Home - Self-Care Reason For Visit: LUMBAR SPINE PAIN, SEVERE LUMBAR SPINE STENOSIS Discharge Diagnosis: Lumbar spinal stenosis with neurogenic claudication as well as thoracic spinal stenosis with myelopathy Activity: As commented below Non-emergency contact: Primary Care Provider Call non-emergency contact if: you have any medication questions Follow-up/Referrals: Jade Tong DO [Primary Care Provider] - Diet: Regular Addtl Attending Provider Instructions: ACTIVITY RECOMMENDATIONS: SELF CARE INSTRUCTIONS AFTER THORACIC/LUMBAR FUSIONS 1. You may walk to your tolerance. It is good exercise for your legs and back. Expect some back and intermittent leg aches and pains. 2. You may perform "counter-top" level activities (make a sandwich, min with a project, etc.). 3. No bending or lifting of more than 10 pounds or back twisting of any nature (roll like a log when turning in bed). 4. You may ride in a car for 20-30 minutes at a time. No driving until after your first visit with your doctor. 5. Frequent changes of position and restricting sitting to 30 minutes at a time will help limit the amount of back spasms and stiffness you may experience. 6. You may discontinue the use of ambulatory aids (cane, crutches, etc.) once your strength and confidence allow. 7. You may maintenance worker swimming pool the shower and let water strike your incision when you arrive home at least once daily. Do not take a tub bath, sit in a hot tub or go into a swimming pool until after your first recheck in the office. SPECIAL CARE INSTRUCTIONS: VERY IMPORTANT TO READ AND REVIEW A. Your surgical incision has been closed with a cosmetic suture under the skin that will dissolve in about 6 weeks. In 14 days, you can use a pair of clean scissors and cut the suture that is left outside of the skin at the ends of your incision. 1. The small skin tapes can be removed 7 days after surgery if they have not fallen off by that point. 2. You may keep the wound open to air as much as possible to promote healing after post-op day number 5 unless told otherwise by your doctor. 3. If you think the wound looks like it is becoming infected (redness or worsening drainage) and/or you are experiencing fever, chill or worsening back pain and muscle spasms, contact the office so that we may evaluate you as soon as possible. B. Complications are uncommon, but please contact us if you have any signs or symptoms of: 1. wound infection (fever higher than 102.5 degrees F, redness, separation of wound, drainage, or increasing pain from the incision) 2. blood clots in legs (pain, swelling, redness and warmth in legs) 3. urinary tract infection (fever higher than 102.5 degrees F, burning upon urination or increased frequency of urination) 4. nerve problems (inability to walk on your toes or heels, numbness, loss of bowel or bladder control) 5. any other symptoms that concern you C. Please call the office at if you have any concerns or questions about your operation or recovery. D. No smoking! Smoking drastically decreases the chance of a solid fusion. E. Do not take any anti-inflammatory medications (Indocin, Advil, Motrin, Aspirin, Naprosyn, etc.) as these may inhibit the chance of a solid fusion. Tylenol is okay to take for pain. MANAGING PAIN AFTER SPINAL SURGERY 1. Narcotic medication is intended for short-term use and will be provided for surgical pain. Surgical pain usually lasts for a period of 4-6 weeks. Narcotic medication includes Percocet, Vicodin, Darvocet, Tylenol #3 or Lortab. 2. Longer-term pain is more appropriately treated with non-narcotic medication such as Tylenol ES. 3. Muscle spasm is not appropriately treated with narcotics. Muscle relaxers such as Soma, Flexeril or Skelaxin can be used along with Tylenol ES. 4. Remember that we all live with some "aches and pains". This is not unusual or uncommon after an injury or as we get older. a. Back pain is expected and may include muscle spasms for 4 to 6 weeks after surgery. The pain should gradually improve. If the pain worsens for no apparent reason, please contact the office. b. Intermittent leg pain may also be experienced and should not be concerned about unless it worsens for no apparent reason. If so, please contact the office. 5. We will provide appropriate medication within the normal guidelines of their prescribed use. We will also be very cautious and aware of potential abuse and extended duration of patients' medication needs. a. Pain medications are for your comfort and to assist with sleep and rest so that the tissue can heal. They are not provided in order to return to normal activity and should not be used through the day. To do so or worsening pain at night can result from ongoing tissue damage and development of tolerance to the prescribed medicine. 6. Please allow 2-3 days to process refills. Prescriptions will not be mailed but must be picked up at the office. FOLLOW UP VISIT: Keep your scheduled follow-up appointment. Any questions, please call the office at . Pending Studies at Discharge: No Stand-Alone Forms: [facility], Opioid Pain Management, Smoking Cessation Medications and DC Order Prescriptions: New hydrocodone-acetaminophen 7.5-325 mg tablet 1 tab PO Q6H PRN (Reason: pain) Qty: 30 RF: 0 Continued B-complex with vitamin C tablet 1 tab PO DAILY Qty: 90 RF: 3 bupropion HCl 150 mg tablet extended release 24 hr 150 mg PO QPM Qty: 90 RF: 3 chlorthalidone 25 mg tablet 25 mg PO DAILY Qty: 90 RF: 3 metformin 1,000 mg tablet See Rx Instructions PO DAILY Qty: 225 RF: 3 pantoprazole 40 mg tablet,delayed release (DR/EC) 40 mg PO DAILY Qty: 90 RF: 3 aspirin 81 mg Tablet,Delayed Release (Dr/Ec) 162 mg PO DAILY RF: 0 baclofen 10 mg tablet 10 mg PO BID RF: 0 duloxetine 30 mg capsule,delayed release(DR/EC) 30 mg PO DAILY RF: 0 insulin degludec 200 unit/mL (3 mL) insulin pen 80 units subcut BID RF: 0 atorvastatin 40 mg tablet 40 mg PO HS RF: 0 levothyroxine 137 mcg tablet 137 mcg PO DAILY RF: 0 metoprolol tartrate 100 mg tablet 100 mg PO BID RF: 0 lisinopril 2.5 mg tablet 2.5 mg PO DAILY RF: 0 Ozempic 0.25 mg or 0.5 mg(2 mg/1.5 mL) pen injector 0.25 mg SUBCUT WK RF: 0 insulin aspart U-100 [Novolog Flexpen U-100 Insulin] 100 unit/mL (3 mL) insulin pen 40 unit SUBCUT TIDM RF: 0 Discontinued meloxicam 15 mg tablet 15 mg PO DAILY RF: 0 Discharge Orders: Discharge Order (Routine); Ordered 12/12/19 Ordered By: Chris Manriquez/Other Patient Handouts: Hyperglycemia, Diabetes Healthy Meals, Diabetes Meal Planning Admission Data Admit Date/Time: 12/02/19 12:44 Attending Provider: Chris Silva Admit Provider: Chris Silva Primary Care Provider: Jade Tong Other Providers: Vikas Youssef ; Albert Sarabia ; Vin Cleveland Other Interventions: Discharge Summary Assessment (RN) Last Done: 12/12/19 11:13
== END 2019-12-12 14:05 | disposition home or self-care (01) | DRG 454 ==
LOC: 3W 12:44